=== PATIENT | male | born 1930 | race Caucasian/White ===

== ENCOUNTER 2017-10-13 09:23 | Inpatient (IN) | payer MEDICARE ==
[~2017-10-13] VITALS: Ht 182.9 cm; Wt 113.4 kg
[~2017-10-13 09:23] MED LIST: AC500T PO; ALLP100T PO; AMLO5TAB2 PO; ASP81TEC PO; ATOR80TA PO; DOXE1CAP PO; ENAL5TAB PO; FENO48TA PO; FURO20TA4 PO; FURO40TA4 PO; GLIP10TA13 PO; GLIP5TAB13 PO; LEVO750T6 PO; MTP50T PO; RANI75TA30 PO
--- OUTSIDE RECORDS SUMMARY | 2017-10-13 09:29 | XMS REPORT | Continuity of Care Document ---
Author Author [facility] Organization [facility] Address Unknown Phone Unavailable Allergies Active Description Code Type Severity Reaction Onset Reported/Identified Relationship to Patient Clinical Status Yes No Known Drug Allergies [id number] Drug Allergy Unknown N/A 05/15/2010 Medications There is no data. 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 Results There is no data. Encounters ACCT No. Visit Date/Time Discharge Status Pt. Type Provider Facility Loc./Unit Complaint [id number] 10/26/2013 13:14:00 01/24/2014 00:01:00 DIS Outpatient [id number] 09/28/2013 12:59:00 10/04/2013 00:01:00 DIS Outpatient [id number] 04/09/2013 12:53:00 06/29/2013 00:01:00 DIS Outpatient HENRIK VELAZQUEZ MD [facility] IRON DEFIECENCY ANEMIA [id number] 06/21/2013 12:54:00 06/28/2013 00:01:00 DIS Outpatient [id number] 03/16/2013 12:58:00 03/22/2013 00:01:00 DIS Outpatient [id number] 06/08/2013 13:28:58 ACT Document Registration
[2017-10-13 09:40] LABS: BASOPHILS # (AUTO) 0.1 10^3/uL (0.0-0.1); BASOPHILS % (AUTO) 1 % (0-10); EOSINOPHILS # (AUTO) 0.1 10^3/uL (0.0-0.3); EOSINOPHILS % (AUTO) 1 % (0-10); HEMATOCRIT 35 % (40-54); HEMOGLOBIN 11.5 G/DL (13.3-17.7); LYMPHOCYTES # (AUTO) 2.7 X 10^3 (1.0-4.0); LYMPHOCYTES % (AUTO) 29 % (12-44); MEAN CORPUSCULAR HEMOGLOBIN 31 PG (25-34); MEAN CORPUSCULAR HGB CONC 33 G/DL (32-36); MEAN CORPUSCULAR VOLUME 96 FL (80-99); MEAN PLATELET VOLUME 9.8 FL (7.4-10.4); MONOCYTES # (AUTO) 0.7 X 10^3 (0.0-1.0); MONOCYTES % (AUTO) 7 % (0-12); NEUTROPHILS # (AUTO) 5.9 X 10^3 (1.8-7.8); NEUTROPHILS % (AUTO) 63 % (42-75); PLATELET COUNT 179 10^3/uL (130-400); RED BLOOD COUNT 3.66 10^6/uL (4.35-5.85); RED CELL DISTRIBUTION WIDTH 13.2 % (10.0-14.5); WHITE BLOOD COUNT 9.4 10^3/uL (4.3-11.0)
[2017-10-13] MEDS ORDERED: RT-ALBUTEROL/IPRATROPIUM 3 ML (DUONEB) VIAL INH ONE (09:45)
[2017-10-13 09:58] LABS: PROTHROMBIN TIME PATIENT 13.5 SEC (12.2-14.7)
--- NOTE | 2017-10-13 09:58 | Diagnostic Imaging Report ---
INDICATION: Non-activation, fell, slurred speech, and left-sided weakness. COMPARISON: I have no previous exam for comparison. FINDINGS: There is no intracranial hemorrhage. There is generalized cerebral cortical atrophy, chronic atherosclerotic vascular calcifications, chronic dural ossification, and chronic periventricular white matter small vessel disease. No focal sulcal effacement. No evidence for focal or generalized edema. No mass or mass effect. The orbits and calvarium are nonacute. There is membrane thickening and fluid nearly completely occluding the left maxillary sinus with occlusion of left-sided anterior ethmoid air cells and the left frontal sinus. There is no mastoid effusion. The right paranasal sinuses and sphenoids are clear. IMPRESSION: Chronic senescent changes in the brain. No hemorrhage, edema, or acute-appearing intracerebral pathology. Extensive left-sided paranasal sinus disease. Dictated by: Dictated on workstation # [id number]
--- NOTE | 2017-10-13 10:06 | Diagnostic Imaging Report ---
INDICATION: Left-sided weakness and slurred speech. TIME OF EXAMINATION: 09:50 a.m. COMPARISON: Correlation is made with prior study from 07/16/2011. FINDINGS: The heart size is normal. The pulmonary vascularity is unremarkable. The lungs are clear. No infiltrate, effusion or pneumothorax is detected. IMPRESSION: No acute cardiopulmonary process is detected. Dictated by: Dictated on workstation # [id number]
[2017-10-13 10:07] LABS: ALANINE AMINOTRANSFERASE 10 U/L (0-55); ALBUMIN 3.8 GM/DL (3.2-4.5); ALKALINE PHOSPHATASE 58 U/L (40-136); BILIRUBIN,TOTAL 0.6 MG/DL (0.1-1.0); BUN/CREATININE RATIO 17; CALCIUM 9.3 MG/DL (8.5-10.1); CARBON DIOXIDE 25 MMOL/L (21-32); CHLORIDE 105 MMOL/L (98-107); CREATININE SERUM 2.25 MG/DL (0.60-1.30); GFR ESTIMATED 28; GLUCOSE 196 MG/DL (70-105); POTASSIUM 3.9 MMOL/L (3.6-5.0); SODIUM 140 MMOL/L (135-145); TOTAL PROTEIN 6.3 GM/DL (6.4-8.2)
--- NOTE | 2017-10-13 11:49 | ED Neurological Problem ---
General Chief Complaint: Neuro-Stroke Like Symptoms Stated Complaint: FALL,STROKE SYMPTOMS Nursing Triage Note: ASSISTED PT OUT OF CAR INTO A WHEELCHAIR AND INTO ROOM 07. PT AND STATE HE STARTED HAVING STROKE LIKE SYMPTOMS YESTERDAY AFTERNOON THAT PROGRESSED INTO [place]. STATES HE WAS HAVING TROUBLE TALKING AND WEAKNESS ON THE LEFT SIDE. STATES HE CONTINUES WITH THIS TROUBLE TODAY. STATES HE FELL IN THE MIDDLE OF THE NIGHT WHILE GOING TO THE BATHROOM AND FELL THIS AM ON THE WAY OUT TO THE CAR. Nursing Sepsis Screen: No Definite Risk Source: patient Exam Limitations: no limitations History of Present Illness Date Seen by Provider: Oct 13, 2017 Time Seen by Provider: 09:30 Initial Comments This 87-year-old gentleman presents to the emergency room via private vehicle after developing left-sided weakness, left facial droop and difficulty speaking sometime yesterday afternoon before supper. He had a fall off of his bed and a fall on the porch. He denies any injury to the head or neck. He has minor abrasions to the upper extremities but otherwise is uninjured. He continues to have difficulty speaking, swallowing, and weakness to the left extremities. He states he was able to ambulate this morning but only with a walker. He has some cough and some wheezing as well. He is also nauseated. Allergies and Home Medications Allergies Coded Allergies: No Known Drug Allergies (Unverified , 05/15/10) Home Medications Acetaminophen 500 Mg Tablet, 2 TAB PO Q8H PRN, (Reported) Allopurinol 100 Mg Tab, 100 MG PO BIDPC, (Reported) Atorvastatin Calcium 80 Mg Tablet, 1 EACH PO DAILY, (Reported) Doxercalciferol 1 Mcg Capsule, 2.5 MCG PO 3 times weekly, (Reported) Fenofibrate 48 Mg Tab, 1 EACH PO DAILY, (Reported) Furosemide 20 Mg Tablet, 1 EACH PO BID, (Reported) Glipizide 5 Mg Tablet, 1 EACH PO BID, (Reported) Levofloxacin 750 Mg Tablet, 1 EACH PO DAILY, (Reported) Metoprolol Tartrate 50 Mg Tablet, 1 EACH PO BID, (Reported) Ranitidine Hcl 75 Mg Tablet, 2 TAB PO DAILY, (Reported) Patient Home Medication List Home Medication List Reviewed: Yes Review of Systems Constitutional: no symptoms reported Eyes: No Symptoms Reported Ears, Nose, Mouth, Throat: no symptoms reported Respiratory: see HPI Cardiovascular: no symptoms reported Gastrointestinal: see HPI Genitourinary: no symptoms reported Musculoskeletal: no symptoms reported Skin: see HPI Psychiatric/Neurological: See HPI Endocrine: No Symptoms Reported Hematologic/Lymphatic: No Symptoms Reported Past Vasnody-Dzwbkw-Odlmek Hx Patient Social History Alcohol Use: Denies Use Recreational Drug Use: No Smoking Status: Former Smoker Recent Foreign Travel: No Contact w/Someone Who Travel: No Recent Infectious Disease Expo: No Recent Hopitalizations: No Immunizations Up To Date Tetanus Booster (TDap): Unknown Past Medical History Surgeries: Yes (ulcer surgery , MAXOID) Respiratory: No Cardiac: Yes Heart Attack, Hypertension Neurological: No Reproductive Disorders: No Gastrointestinal: No Musculoskeletal: No Endocrine: Yes Diabetes, Non-Insulin dep HEENT: No Cancer: No Psychosocial: No Blood Disorders: No Physical Exam Vital Signs Vital Signs - First Documented 10/13/17 09:23 Temp 96.7 Pulse 74 Resp 18 B/P (MAP) 177/89 (118) Pulse Ox 96 O2 Delivery Room Air Capillary Refill : Less Than 3 Seconds General Appearance: WD/WN, no apparent distress HEENT: PERRL/EOMI, other (left-sided facial droop) Neck: non-tender, normal inspection Respiratory: lungs clear, normal breath sounds, no respiratory distress, no accessory muscle use Cardiovascular: regular rate, rhythm, no murmur Gastrointestinal: normal bowel sounds, non tender, soft Extremities: non-tender, normal capillary refill, swelling (mild lower extremity edema) Neurologic/Psychiatric: alert, normal mood/affect, oriented x 3, abnormal escapement matcher II-XII (left-sided facial droop), facial droop, motor weakness (left upper and lower extremity), other (dysphasia. Patient states some blurry vision in the upper field of vision of the left eye. However, distinction of moving objects in the peripheral vision seems to be full in both eyes on exam.) Crainal Nerves: normal hearing, normal speech, PERRL Coordination/Gait: normal finger to nose, abnormal gait Motor/Sensory: weak motor strength LUE, weak motor strength LLE Skin: normal color, warm/dry, other (abrasions on the upper extremities) Stroke NIH Stroke Scale Assessment Level of Consciousness: 0=Alert (0), Level of Consciousness-Questions: 0= Answers both month/age (0), LOC Commands: 0=Performs both tasks (0), Visual [place]: 1=Partial hemianopia (1), Facial Movement (Facial Paresis): 1=Minor paralysis (1), Motor Function-Arms Right: 0=No drift (0), Motor Function-Arms Left: 1=Drift (1), Motor Function-Legs Right: 0=No drift (0), Motor Function- Legs Left: 1=Drift (1), Limb Ataxia: 0=Absent (0), Sensory: 0=Normal:no loss (0) , Best Language: 0=No aphasia (0), Dysarthria: 0=Normal (0), Extinction & Inattention: 0=No abnormality (0), Total: 4 Progress/Results/Core Measures Lab Results Laboratory Tests Test 10/13/17 09:30 Range/Units White Blood Count 9.4 4.3-11.0 10^3/uL Red Blood Count 3.66 L 4.35-5.85 10^6/uL Hemoglobin 11.5 L 13.3-17.7 G/DL Hematocrit 35 L 40-54 % Mean Corpuscular Volume 96 80-99 FL Mean Corpuscular Hemoglobin 31 25-34 PG Mean Corpuscular Hemoglobin Concent 33 32-36 G/DL Red Cell Distribution Width 13.2 10.0-14.5 % Platelet Count 179 130-400 10^3/uL Mean Platelet Volume 9.8 7.4-10.4 FL Neutrophils (%) (Auto) 63 42-75 % Lymphocytes (%) (Auto) 29 12-44 % Monocytes (%) (Auto) 7 0-12 % Eosinophils (%) (Auto) 1 0-10 % Basophils (%) (Auto) 1 0-10 % Neutrophils # (Auto) 5.9 1.8-7.8 X 10^3 Lymphocytes # (Auto) 2.7 1.0-4.0 X 10^3 Monocytes # (Auto) 0.7 0.0-1.0 X 10^3 Eosinophils # (Auto) 0.1 0.0-0.3 10^3/uL Basophils # (Auto) 0.1 0.0-0.1 10^3/uL Prothrombin Time 13.5 12.2-14.7 SEC INR Comment 1.0 0.8-1.4 Activated Partial Thromboplast Time 25 24-35 SEC Sodium Level 140 135-145 MMOL/L Potassium Level 3.9 3.6-5.0 MMOL/L Chloride Level 105 98-107 MMOL/L Carbon Dioxide Level 25 21-32 MMOL/L Anion Gap 10 5-14 MMOL/L Blood Urea Nitrogen 38 H 7-18 MG/DL Creatinine 2.25 H 0.60-1.30 MG/DL Estimat Glomerular Filtration Rate 28 BUN/Creatinine Ratio 17 Glucose Level 196 H 70-105 MG/DL Calcium Level 9.3 8.5-10.1 MG/DL Magnesium Level 2.0 1.8-2.4 MG/DL Total Bilirubin 0.6 0.1-1.0 MG/DL Aspartate Amino Transf (AST/SGOT) 13 5-34 U/L Alanine Aminotransferase (ALT/SGPT) 10 0-55 U/L Alkaline Phosphatase 58 40-136 U/L Troponin I < 0.30 <0.30 NG/ML C-Reactive Protein High Sensitivity 0.21 0.00-0.50 MG/DL B-Type Natriuretic Peptide 607.7 H <100.0 PG/ML Total Protein 6.3 L 6.4-8.2 GM/DL Albumin 3.8 3.2-4.5 GM/DL My Orders Orders - YOGESH GREWAL MD BNP (10/13/17:33) Cbc With Automated Diff (10/13/17:) Comprehensive Metabolic Panel (10/13/17:33) Hs C Reactive Protein (10/13/17:33) Magnesium (10/13/17:) Protime With Inr (10/13/17:) Partial Thromboplastin Time (10/13/17:33) Troponin I (10/13/17:33) Ua Culture If Indicated (10/13/17:33) Saline Lock/Iv-Start (10/13/17:33) Ekg Tracing (10/13/17:33) Monitor-Rhythm Ecg Trace Only (10/13/17:33) Chest 1 View, Ap/Pa Only (10/13/17:33) Albuterol/Ipra Inhalation Soln (Duoneb I (10/13/17 09:45) Svn Sm Volume Nebulizer Rt-Rfs (10/13/17:33) Ct Head Wo-R/O Stroke (10/13/17 09:33) Medications Given in ED Current Medications Medications Dose Ordered Sig/Willis Route Start Time Stop Time Status Last Admin Dose Admin Albuterol/ Ipratropium 3 ml ONCE ONCE INH 10/13/17 09:45 10/13/17 09:46 DC 10/13/17 10:39 3 ML Vital Signs/I&O 10/13/17 10/13/17 09:23 10:39 Temp 96.7 Pulse 74 Resp 18 B/P (MAP) 177/89 (118) Pulse Ox 96 96 O2 Delivery Room Air Room Air Blood Pressure Mean: 118 Progress Note : Progress Note Stroke activation was not paged as patient was more than 12 hours into his period of symptoms. He also describes some generalized weakness for a few weeks prior to when the left-sided weakness was noted. The exact time of onset is not certain. He was not a TPA candidate. CT showed no acute abnormalities. Case was reviewed with Dr. Hinds who requested consultation with the neurologist. I discussed the case with Dr. Sage who agreed the patient was not a TPA or interventional candidate due to low NIH score and prolonged time from onset. Patient demonstrated disequilibrium with his gait. He required assistance for safe gait. Patient also describes some blurry vision in the upper field of the left eye which may be related to sagging eyelid and inability to blink. He seemed to have full peripheral field distinction on exam of both eyes. UA was pending at the time of admission. Patient seemed to have no significant injuries but did have abrasions on his extremities. A Boostrix tetanus booster was ordered. Patient failed his dysphagia screen. He will need to be cleared by speech pathology before he is allowed to eat or drink. Patient was wheezing and coughing on arrival and received a DuoNeb treatment. Initial ECG Impression Date: Oct 13, 2017 Initial ECG Impression Time: 09:56 Initial ECG Rate: 64 Initial ECG Rhythm: Normal Sinus Comment Normal sinus rhythm with PVCs. Borderline prolonged QT interval. No axis deviation. No ST elevation or depression. Diagonstic Imaging: Xray Plain Films/CT/US/NM/MRI: chest Comments Chest x-ray viewed by me and report reviewed. See report below: NAME: CLAUDIO NOLASCO [facility] REC#: [id number] PT STATUS: REG ER : 1930 PHYSICIAN: YOGESH GREWAL MD ADMIT DATE: 10/13/17/ER Draft Date of Exam:10/13/17 CHEST 1 VIEW, AP/PA ONLY INDICATION: Left-sided weakness and slurred speech. TIME OF EXAMINATION: 09:50 a.m. COMPARISON: Correlation is made with prior study from 07/16/2011. FINDINGS: The heart size is normal. The pulmonary vascularity is unremarkable. The lungs are clear. No infiltrate, effusion or pneumothorax is detected. IMPRESSION: No acute cardiopulmonary process is detected. Dictated on workstation # [id number] Dict: 10/13/17 1001 Trans: 10/13/17 1005 [facility] [id number] Interpreted by: ILAN RICCI MD Diagonstic Imaging: CT Plain Films/CT/US/NM/MRI: head Comments CT head viewed by me and report reviewed. See report below: NAME: CLAUDIO NOLASCO [facility] REC#: [id number] PT STATUS: REG ER : 1930 PHYSICIAN: YOGESH GREWAL MD ADMIT DATE: 10/13/17/ER Signed Date of Exam: 10/13/17 CT HEAD WO-R/O STROKE INDICATION: Non-activation, fell, slurred speech, and left-sided weakness. COMPARISON: I have no previous exam for comparison. FINDINGS: There is no intracranial hemorrhage. There is generalized cerebral cortical atrophy, chronic atherosclerotic vascular calcifications, chronic dural ossification, and chronic periventricular white matter small vessel disease. No focal sulcal effacement. No evidence for focal or generalized edema. No mass or mass effect. The orbits and calvarium are nonacute. There is membrane thickening and fluid nearly completely occluding the left maxillary sinus with occlusion of left-sided anterior ethmoid air cells and the left frontal sinus. There is no mastoid effusion. The right paranasal sinuses and sphenoids are clear. IMPRESSION: Chronic senescent changes in the brain. No hemorrhage, edema, or acute-appearing intracerebral pathology. Extensive left-sided paranasal sinus disease. Dictated by: Dictated on workstation # [id number] Dict: 10/13/17 0953 Trans: 10/13/17 1158 Interpreted by: SADIQ COVARRUBIAS Electronically signed by: SADIQ COVARRUBIAS 10/13/17 1158 Departure Communication (Admissions) Time/Spoke to Admitting Phy: 11:30 Dr. Hinds Impression Primary Impression: Left-sided weakness Additional Impressions: Weakness on left side of face Dysphagia Qualified Codes: R13.10 - Dysphagia, unspecified Wheezing Disposition: ADMITTED INPATIENT Condition: Stable Admissions Decision to Admit Reason: Admit from ER (General) Decision to Admit/Date: Oct 13, 2017 Time/Decision to Admit Time: 09:40 Departure-Patient Inst. Referrals: ASHLEY SEXTON MD (PCP/Family) Primary Care Physician YOGESH GREWAL MD Oct 13, 2017 11:49
--- OUTSIDE RECORDS SUMMARY | 2017-10-13 12:07 | XMS REPORT | Continuity of Care Document ---
Author Author [facility] Organization [facility] Address Unknown Phone Unavailable Allergies Active Description Code Type Severity Reaction Onset Reported/Identified Relationship to Patient Clinical Status Yes No Known Drug Allergies [id number] Drug Allergy Unknown N/A 05/15/2010 Medications There is no data. 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 Results There is no data. Encounters ACCT No. Visit Date/Time Discharge Status Pt. Type Provider Facility Loc./Unit Complaint [id number] 10/26/2013 13:14:00 01/24/2014 00:01:00 DIS Outpatient [id number] 09/28/2013 12:59:00 10/04/2013 00:01:00 DIS Outpatient [id number] 04/09/2013 12:53:00 06/29/2013 00:01:00 DIS Outpatient HENRIK VELAZQUEZ MD [facility] IRON DEFIECENCY ANEMIA [id number] 06/21/2013 12:54:00 06/28/2013 00:01:00 DIS Outpatient [id number] 03/16/2013 12:58:00 03/22/2013 00:01:00 DIS Outpatient [id number] 06/08/2013 13:28:58 ACT Document Registration
[2017-10-13] MEDS ORDERED: TETANUS,DIPTH,PERTUSS P/F (BOOSTRIX) 0.5 ML VIAL IM ONE (12:30)
[2017-10-13] MEDS ORDERED: ACETAMINOPHEN 650 MG SUPP (TYLENOL) PR PRN (12:45)
[2017-10-13] MEDS ORDERED: NS IV 1000 ML 1,000 ML IV SCH (12:45)
[2017-10-13] MEDS ORDERED: CATHETER FLUSH 10 ML SYR IV PRN (12:45)
[2017-10-13] MEDS ORDERED: ONDANSETRON 4 MG/2 ML (SDV) Z0FRAN IV PRN (12:45)
[2017-10-13] MEDS ORDERED: ACETAMINOPHEN 325 MG TABLET PO PRN (12:45)
[2017-10-13] MEDS ORDERED: ASPIRIN E.C. 325 MG (ECOTRIN) TABLET PO SCH (12:45)
[2017-10-13] MEDS ORDERED: BISACODYL 10 MG SUPP (DULCOLAX) PR PRN (12:45)
[2017-10-13] MEDS ORDERED: GLIP10TA13 PO (13:23)
[2017-10-13] MEDS ORDERED: FURO40TA4 PO (13:23)
[2017-10-13] MEDS ORDERED: FENO48TA5 PO (13:23)
[2017-10-13] MEDS ORDERED: AMLO5TAB2 PO (13:23)
[2017-10-13] MEDS ORDERED: METO50TA15 PO (13:23)
[2017-10-13] MEDS ORDERED: ATOR40TA70 PO (13:23)
[2017-10-13] MEDS ORDERED: POTA10CA43 PO (13:23)
--- NOTE | 2017-10-13 13:32 | Physical Therapy Evaluation ---
PT Evaluation-General Medical Diagnosis Admission Date Oct 13, 2017 at 11:40 Medical Diagnosis: left sided weakness Onset Date: Oct 12, 2017 Therapy Diagnosis Therapy Diagnosis: generalized weakness/debility Height/Weight Height (Feet): 6 Height (Inches): 0.00 Weight (Pounds): 250 Weight (Ounces): 0.0 Precautions Precautions/Isolations: Fall Prevention, Standard Precautions Weight Bear Status Right Lower Extremity: Right Full Weight Bearing Left Lower Extremity: Left Full Weight Bearing Referral Physician: Lizet Reason for Referral: Evaluation/Treatment Medical History Pertinent Medical History: HTN, PA Current History ED via private vehicle with stroke like symptoms and 2 falls/difficulty swallowing, speaking and left sided weakness. Reviewed History: Yes Social History Home: Single Level Current Living Status: Spouse Entry Into Home: Stairs With Railing PT Steps Into Home: 4 Prior/Core FIM Prior Level of Function Functional [place] Measure 0=Not Assessed/NA 4=Minimal Assistance 1=Total Assistance 5=Supervision or Setup 2=Maximal Assistance 6=Modified [place] 3=Moderate Assistance 7=Complete [place] Bed Mobility: 6 Transfers (B,C,W/C) (FIM): 6 Gait: 6 Locomotion: 6 patient reports he utilizes FWW occasionally PT Evaluation-Current Subjective Patient agrees to PT. Pain Numeric Pain Scale: 0-No Pain Location: No Pain Reported Objective Patient Orientation: Normal For Age Problem Solving: Good ROM/Strength ROM Lower Extremities bilateral LE WNL Strength Lower Extremities right knee flexion/extension 4+/5; hip flexion 4+/5; DF/PF 4+/5 left knee flexion/extension 3/5; hip flexion 3/5; DF/PF 3/5 Integumentary/Posture Integumentary multiple abrasions due to falls at home Bowel Incontinence: No Bladder Incontinence: No Posture slight trunk flexed posture Neuromuscular (Tone, Coordination, Reflexes) slightly diminished coordination with left LE with diminished proprioception Sensory Vision: Functional Hearing: Impaired Sensation Right Lower Extremit: Intact Sensation Left Lower Extremity: Intact Transfers Functional [place] Measure 0=Not Assessed/NA 4=Minimal Assistance 1=Total Assistance 5=Supervision or Setup 2=Maximal Assistance 6=Modified [place] 3=Moderate Assistance 7=Complete [place] Transfers (B, C, W/C) (FIM): 4 Scootin Rollin Supine to/from Sit: 5 Sit to/from Stand: 4 Gait Mode of Locomotion: Walk Anticipated Mode of Locomotion: Walk Gait (FIM): 2 Distance (FIM): 0=547-18 ft Distance: 100' Gait Level of Assist: 4 Gait Persons Needed: 1 Gait Assistive Device: FWW Comments/Gait Description extended UE's with FWW/noted left LE weakness and gait training with slight left LE lag Balance Sitting Static: Normal Sitting Dynamic: Normal Standing Static: Fair Standing Dynamic: Fair Assessment/Needs 87 y.o. male, will benefit from skilled PT to address functional strength and mobility to improve current LOF and to safely return to home with spouse at maximum LOF. 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 Medical Office Professional Instructor Goals PT Half-Way Goals Time Frame: Oct 24, 2017 Transfers (B,C,W/C) (FIM): 6 Gait (FIM): 6 Gait distance (FIM): 3=150 ft Distance: 225' Gait Level of Assist: 6 Gait Assistive Device: None, FWW, Cane Single Point Stairs (FIM): 5 # of Steps: 8 Stairs Level Of Assist: 5 PT Plan Problem List Problem List: Activity Tolerance, Functional Strength, Safety, Balance, Gait Treatment/Plan Treatment Plan: Continue Plan of Care Treatment Plan: Bed Mobility, Education, Functional Activity Yong, Functional Strength, Gait, Safety, Therapeutic Exercise, Transfers Treatment Duration: Oct 24, 2017 Frequency: 11 times per week Estimated Hrs Per Day: .5 hour per day Patient and/or Family Agrees t: Yes Safety Risks/Education Patient Education: Safety Issues Teaching Recipient: Patient Teaching Methods: Discussion Response to Teaching: Verbalize Understanding Discharge Recommendations Therapy D/C Recommendations: Acute Rehab, Physical Therapy Home Care Time/GCodes Time In: 1300 Time Out: 1315 Total Billed Treatment Time: 15 [facility] Oct 13, 2017 13:31
--- NOTE | 2017-10-13 13:46 | ST Dysphagia Evaluation ---
Speech Evaluation-General Medical Diagnosis left sided weakness Onset Date: Oct 12, 2017 Therapy Diagnosis Therapy Diagnosis: Mild to Moderate Pharyngeal Dysphagia Precautions Precautions: Aspiration Precautions/Isolations: Fall Prevention, Standard Precautions Referral Referring Physician: Dr. Jessie Hinds Reason for Referral: Evaluation/Treatment Clinical Bedside Swallowing Evaluation Medical History Pertinent Medical History: HTN, [place] Current History The patient was recently admitted to [facility] following stroke-like symptoms including left sided weakness. Reviewed History: Yes Social History Current Living Status: Spouse Speech PLF/Current-Dysphagia Prior Level of Function The patient's stated the patient has been "coughing a lot" on liquids for "some time now." The patient's denied additional information regarding the patient's swallowing function, however, did report the patient consumes a regular diet with thin liquids at home. Subjective The patient was seated upright in recliner upon entrance. The patient greeted the clinician and was agreeable to participation in the clinical bedside swallowing evaluation. CXR: 10/13/2017: No acute cardiopulmonary process. Cognitive Status Patient Orientation: Person, Place Oral Motor Skills Dentition: Natural Ability to Follow Directions: Good The patient is NPO pending the results of the swallowing evaluation. Oral Expression Ability: Mild Impairment Voice Voice Phonatory-Based Quality: Glottal [place] Voice Pitch: Normal Voice Loudness: Normal Face Facial Symmetry: Asymmetrical (Left facial droop noted (lower 2/3; able to elevate bilateral eyebrows).) Oral-Facial Assessment Oral-Facial Dentition: Normal Labial Seal Description: Droops Left Smile: Droops Left Puff Cheeks: Reduced Strength (Left.) Lingual Protrusion: Abnormal (Slight left sided deviation.) Lingual ROM: Normal Lingual Strength: Abnormal (Slightly reduced left sided strength.) Pharynx Velopharyngeal Move.: Normal Volitional Dry Swallow: Yes Dysphagia Evaluation Consistencies Presented: Regular, Thin Liquid, [place] Thick Liquid, Honey Thick Liquid, Pureed - No oral deficits were noted throughout the evaluation. Pharyngeal Phase: Reduced Laryngeal Elevation, Delayed Swallow - Poor airway protection in the presence of bolus material was appreciated as demonstrated through the patient's delayed cough response to thin liquids. Funct. Velo/Pharyngeal Symptom: Clears Throat, Cough After Swallow, Wet Voice - Thin Liquid (via teaspoon, cup sip): The patient demonstrated a delayed throat clear following one of six teaspoon trials. The patient displayed an immediate cough following two of two cup sip trials. - [place]-thick liquid (via teaspoon and straw): The patient did not demonstrate any signs/symptoms of aspiration with teaspoons of nectar-thick liquid. A delayed throat clear was noted following two of two straw sips of nectar-thick liquid. - Honey-thick liquid (via teaspoon and straw): No signs/symptoms of aspiration were demonstrated with multiple boluses of honey-thick liquid via teaspoon or consecutive straw drink. - Puree: No signs/symptoms of aspiration were demonstrated with puree consistencies tested. - Solid: No signs/symptoms of aspiration were demonstrated with solid consistencies tested. - Puree with Medication: No signs/symptoms of aspiration were demonstrated with a pill placed in a puree consistency for administration. To note: Due to the patient's intentional tremor, a straw was found to be a more beneficial method of administration versus cup. Dietary Recommendations: Regular Liquid Recommendations: Honey Consistancy Swallowing Precautions: Small Bites and Sips, Sitting 90 Degrees 30 Post Intake Medication placed in puree for administration. Dysphagia Evaluation Summary The patient demonstrated mild to moderate pharyngeal dysphagia characterized by a delayed pharyngeal swallow response and reduced laryngeal elevation. Speech Short Term Goals Short Term Goals Short Term Goals 1. The patient will tolerate 10/10 trials of nectar-thick liquid via teaspoon and straw sip. 2. The patient will demonstrate swallowing strategies with 75% accuracy and mild clinician verbal cueing. Time Frame-STG: Five Days Speech Handkerchief Sample Clerk Goals Nursing Home Goals 1. The patient will tolerate the LRD without signs/symptoms of aspiration or laryngeal penetration. Time Frame: Ten Days Speech-Plan Treatment Plan Speech Therapy Treatment Plan: Continue Plan of Care Continue skilled speech pathology to target swallowing safety. Treatment Duration: Oct 24, 2017 Frequency: 3 times per week Estimated Hrs Per Day: .25 hour per day Rehab Potential: Fair Safety Risks/Education Teaching Recipient: Patient, Significant Other Teaching Methods: Discussion Response to Teaching: Verbalize Understanding Education Topics Provided: Results, Recommendations, Plan of Care - The above recommendations were shared with the patient intensive care anaesthetist who agreed to provide the recommendations to the RN. Time Speech Therapy Time In: 13:20 Speech Therapy Time Out: 13:35 Total Billed Time: 15 Billed Treatment Time 1 COLLIN ORTIZ Oct 13, 2017 13:46
--- NOTE | 2017-10-13 14:20 | Occupational Therapy Eval ---
OT Evaluation-General/PLF Medical Diagnosis Admission Date Oct 13, 2017 at 11:40 Medical Diagnosis: left sided weakness Onset Date: Oct 12, 2017 Therapy Diagnosis Therapy Diagnosis: decreased ADL skills Height/Weight Height (Feet): 6 Height (Inches): 0.00 Weight (Pounds): 250 Weight (Ounces): 0.0 Precautions Precautions/Isolations: Fall Prevention, Standard Precautions Referral Physician: Lizet Medical History Pertinent Medical History: DM, HTN, [place] Current History Pt presented to hospital with reports of left side weakness and difficulty speaking and swallowing Social History Home: Single Level Current Living Status: Spouse Entry Into Home: Stairs With Railing Steps Into Home: 4 ADL-Prior Level of Function ADL PLOF Comments Pt reports being independent prior to onset of symptoms. DME/Equipment: Bath Chair, Tub/Shower Drive Self: Yes OT Current Status Subjective Pt sitting in chair, agrees to therapy. No c/o pain. Mental Status/Objective Patient Orientation: Person, Place, Situation Current Glasses/Contacts: Yes Hearing Aids: No Dentures/Partials: No Hand Dominance: Right Upper Extremity ROM Grossly WFL Upper Extremity Strength Right UE grossly 4+/5 Left UE grossly 4/5 ADL-Treatment ADL-Current Pt participated in UE assessment while seated. Pt doffed/donned sock with SBA and increased time. Sit to stand with supervision. Pt demonstrated ability to perform transfer with minimal assistance and cues for safety using FWW. Education provided regarding role of OT and plan of care. Pt states understanding and is in agreement. Pt sitting in chair with needs met and spouse and nurse aide present after session. Functional [place] Measure 0=Not Assessed/NA 4=Minimal Assistance 1=Total Assistance 5=Supervision or Setup 2=Maximal Assistance 6=Modified [place] 3=Moderate Assistance 7=Complete IndependenceIRFPAI Quality Coding Scale 6 Independent with activity with or without an assistive device 5 Patient requires set up or clean up by helper. Patient completes activity by themselves 4 Supervision or touching assist (CGA). [place] provide cues , steadying assist 3 The helper provides less than half the effort to complete the activity 2 The helper provides more than half the effort to complete the activity 1 Dependent. The helper does all the effort to complete an activity 7 Patient refused to complete or attempt activity 9 The patient did not perform the activity before the current illness or injury 88 Not attempted due to Medical conditions or safety concerns Education OT Patient Education: Rehab process Teaching Recipient: Patient Teaching Methods: Discussion Response to Teaching: Verbalize Understanding OT Short Term Goals Short Term Goals 1=Demonstrate adherence to instructed precautions during ADL tasks. 2=Patient will verbalize/demonstrate understanding of assistive devices/ modifications for ADL. 3=Patient will improve strength/tolerance for activity to enable patient to perform ADL's. OT Care Home Goals Digital Marketing Specialist Goals Time Frame: Oct 24, 2017 Eating (FIM): 6 Grooming(FIM): 6 Bathing(FIM): 5 Upper Body Dressing(FIM): 6 Lower Body Dressing(FIM): 6 Toileting(FIM): 6 Toilet/Commode Transfer(FIM): 6 Additional Goals: 2-Verbalize Understanding, 3-ImproveStrength/Yong 1=Demonstrate adherence to instructed precautions during ADL tasks. 2=Patient will verbalize/demonstrate understanding of assistive devices/ modifications for ADL. 3=Patient will improve strength/tolerance for activity to enable patient to perform ADL's. OT Education/Plan Problem List/Assessment Assessment: Decreased Activ Tolerance, Decreased UE Strength, Dependent Transfers, Impaired Self-Care Skills Pt to benefit from skilled OT intervention for ADL training, transfers, strengthening, and home safety education to increase level of independence and allow safe discharge plan. Discharge Recommendations Plan/Recommendations: Continue POC Treatment Plan/Plan of Care Treatment,Training & Education: Yes Patient would benefit from OT for education, treatment and training to promote independence in ADL's, mobility, safety and/or upper extremity function for ADL' s. Plan of Care: ADL Retraining, Functional Mobility, UE Funct Exercise/Act, UE Neuromus Re-Ed/Coord Treatment Duration: Oct 24, 2017 Frequency: 5 times per week Estimated Hrs Per Day: .25 hour per day Agreement: Yes Rehab Potential: Fair Time/GCodes Start Time: 13:50 Stop Time: 14:07 Total Time Billed (hr/min): 17 Billed Treatment Time 1 visit, PRACHI(17minutes) ROLF LINK OT Oct 13, 2017 14:20
[2017-10-13] MEDS ORDERED: FEBU80TA PO (14:26)
[2017-10-13] MEDS ORDERED: ACET-2469 PO (14:26)
[2017-10-13] MEDS ORDERED: ASPI-983 PO (14:26)
[2017-10-13] MEDS ORDERED: ACET-2267 PO (14:26)
[2017-10-13] MEDS ORDERED: RANI-425 PO (14:26)
[2017-10-13] MEDS ORDERED: CHOL20002 PO (14:31)
[2017-10-13] MEDS ORDERED: ASCO-262 PO (14:31)
[2017-10-13] MEDS ORDERED: FERR-84 PO (14:31)
--- NOTE | 2017-10-13 15:51 | Diagnostic Imaging Report ---
PROCEDURE: US carotid duplex, bilateral. TECHNIQUE: Multiple real-time grayscale images were obtained over the carotid arteries in various projections, bilaterally. Additional duplex Doppler and color Doppler images were also obtained. INDICATION: Left-sided weakness. FINDINGS: Minimal plaquing in the distal left common carotid artery is noted. The velocities are unremarkable bilaterally. No high-grade stenosis is seen. There is tortuosity to the internal carotid arteries. The left vertebral artery shows antegrade flow. The right vertebral artery was not visualized. Parameters based on the consensus panel Rmairez-Scale and Doppler ultrasound criteria published April 2003, Radiology, Volume 229. DOPPLER (peak systolic velocity M/S Right Left CCA 1.15 1.14 ICA Proximal .69 .65 ICA Mid .75 .64 ICA Distal .64 1.24 RATIO .65 1.09 ECA .71 .65 VERT NOT VISUALIZED .67 IMPRESSION: Mild carotid plaque. There is no evidence of a hemodynamically significant stenosis. Dictated by: Dictated on workstation # [id number]
[2017-10-13 16:20] VITALS: BP 168/88
--- NOTE | 2017-10-13 16:38 | Diagnostic Imaging Report ---
PROCEDURE: MR angiography of the brain without the use of contrast. TECHNIQUE: 3D zwgk-di-vardyi non contrast enhanced MR angiography of the head was performed. A source data was reformatted into rotating MIP projections. INDICATION: Slurred speech. Left-sided weakness. COMPARISON: CT head without contrast from earlier today. FINDINGS: The basilar, right intracranial, internal carotid, bilateral intracranial vertebral, anterior cerebral, middle cerebral and posterior cerebral arteries are widely patent without evidence of aneurysm. There is an apparent outpouching of the left cavernous internal carotid artery measuring approximately 5 x 3 mm located between acquisition slabs [id number]-[id number] sequence. The anterior and posterior communicating arteries are patent. The superior and anterior inferior cerebellar arteries are patent. The posterior inferior cerebellar arteries are not included within the ooqeg-rs-vtlj entirely. Advanced generalized cerebral and cerebellar parenchymal volume loss. 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 Chronic infarcts versus prominent perivascular spaces in the basal ganglia. Complete occlusion of the left maxillary, anterior ethmoid and partially visualized left maxillary sinus. IMPRESSION: 1. There is an apparent outpouching medially of the left cavernous ICA that occurs at the transition between acquisition slabs of the [id number]-ug-pfyxjg sequence. This most likely represents artifact. However, an aneurysm cannot be excluded. Recommend evaluation with CTA. 2. No evidence of intracranial high-grade arterial narrowing. 3. 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 Chronic infarcts versus prominent perivascular spaces in both basal ganglia. 4. Ostiomeatal unit pattern of left paranasal sinus obstruction. Dictated by: Dictated on workstation # [id number]
--- NOTE | 2017-10-13 16:58 | History & Physical-Hospitalist ---
History of Present Illness HPI/Chief Complaint Pt is an 87yoCM with aPMH of HTN, IDDMII, and TIA who presented to the ER with a CC of left hand and left leg weakness that started last night at 8pm. His states he has been feeling more weak for the past few days though and has fallen 3 times prompting her to bring him to the ER today for evaluation. He was activated as a code stroke and CT Head was performed and negative. [facility] stroke team were contacted as well and due to improving symptoms, long duration since onset, and risk of transfer that recommended no TPA and to manage in house. He was found to have significant imbalance in the ER with ambulation and he failed his dysphagia screen. Now he states that his symptoms are improving but still not 100% better. 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 Source: patient Date Seen 10/13/17 Time Seen by Provider: 16:15 Attending Physician Jose Hinds MD PCP Arcenio Gao MD Referring Physician Date of Admission Oct 13, 2017 at 11:40 am Home Medications & Allergies Home Medications Reviewed patient Home Medication Reconciliation performed by pharmacy medication reconciliations utility locate technician and/or nursing. Patients Allergies have been reviewed. Allergies Allergies Coded Allergies No Known Drug Allergies (Gmqnqgqstm07/16/10) Past Grmlmjn-Mqnmry-Sjssss Hx Past Med/Social Hx: Reviewed Nursing Past Med/Soc Hx, Reviewed and Corrections made Patient Social History Marrital Status: single Employed/Student: retired Alcohol Use: Denies Use Recreational Drug Use: No Smoking Status: Former Smoker Physical Abuse Screen: No Sexual Abuse: No Recent Foreign Travel: No Contact w/other who traveled: No Recent Hopitalizations: No Recent Infectious Disease Expo: No Immunizations Up To Date Tetanus Booster (TDap): Unknown Past Medical History Surgeries: Abdominal Cardiac: Heart Attack, Hypertension Reproductive: No Endocrine: Diabetes, Insulin dep History of Blood Disorders: No Family History Reviewed Nursing Family Hx No Pertinent Family Hx Review of Systems Constitutional: No chills, No fever EENTM: No blurred vision, No double vision, No nose congestion, No throat pain Respiratory: No cough, No dyspnea on exertion, No short of breath Cardiovascular: No chest pain, No edema, No palpitations Gastrointestinal: No abdominal pain, No constipation, No diarrhea, No nausea, No vomiting Genitourinary: No dysuria, No frequency Musculoskeletal: No joint pain, No muscle pain Skin: No lesions, No rash Psychiatric/Neurological: Denies Headache, Denies Numbness, Denies Tingling; Weakness All Other Systems Reviewed Negative Unless Noted: Yes (Negative excepted noted.) Physical Exam Physical Exam Vital Signs Vital Signs - First Documented 10/13/17 09:23 Temp 96.7 Pulse 74 Resp 18 B/P (MAP) 177/89 (118) Pulse Ox 96 O2 Delivery Room Air Capillary Refill : Less Than 3 Seconds General Appearance: No Apparent Distress, WD/WN HEENT: PERRL/EOMI, Moist Mucous Membranes Neck: Non Tender, Supple Respiratory: Lungs Clear, No Respiratory Distress Cardiovascular: Regular Rate, Rhythm, No Murmur Gastrointestinal: Normal Bowel Sounds, Non Tender, Soft Extremity: Normal Capillary Refill, No Calf Tenderness Neurologic/Psychiatric: Alert, Oriented x3, Normal Mood/Affect, Motor Weakness (left extremities ), Other (hard of hearing- appears to be oriented but confounded somewhat) Skin: Normal Color, Warm/Dry Results Results/Procedures Labs Laboratory Tests 10/13/17 09:30 Patient resulted labs reviewed. Imaging: Reviewed Imaging Report Assessment/Plan Admission Diagnosis left sided weakness Admission Status: Observation Diagnosis/Problems Diagnosis/Problems (1) Left-sided weakness Status: Acute Assessment & Plan: Concern for CVA Will get MRA and carotid dopplers per [facility] recommendations Lipid Panel ordered ASA ordered PT/OT/ST ordered Does not smoke Statin ordered Monitor on telemetry (2) Dysphagia Status: Acute Assessment & Plan: ST evaluated Regular diet with honey thick liquids Qualifiers: Dysphagia type: unspecified Qualified Codes: R13.10 - Dysphagia, unspecified (3) Insulin dependent diabetes mellitus Assessment & Plan: states he takes insulin but has not filled since December Will monitor off Lantus SSI ordered Continue Glipizide (4) Essential (primary) hypertension Assessment & Plan: Monitor BP Allow for permissive hypertension (5) CKD (chronic kidney disease) stage 4, GFR 15-29 ml/min Assessment & Plan: At apparent baseline Trend (6) Prophylactic measure Assessment & Plan: Lovenox Saline Lock Reg diet with thickened liquid JOSE HINDS MD Oct 13, 2017 4:58 pm
[2017-10-13] MEDS ORDERED: ENOXAPARIN 40 MG/0.4 ML (LOVENOX) SYR SC SCH (17:15)
[2017-10-13 17:20] VITALS: BP 158/90
[2017-10-13] MEDS ORDERED: KCL 10 MEQ TAB (MICRO K) PO SCH (17:30)
[2017-10-13] MEDS ORDERED: ENOXAPARIN 30 MG/0.3 ML (LOVENOX) SYR SC SCH (17:30)
[2017-10-13] MEDS: glipiZIDE 5 MG (GLUCOTROL) TAB PO SCH (18:08)
[2017-10-13 18:28] VITALS: BP 170/88
[2017-10-13 19:39] VITALS: BP 167/76
[2017-10-13] MEDS: DOCUSATE SODIUM 100 MG (COLACE) CAP PO SCH (20:04)
[2017-10-13] MEDS ORDERED: NON-FORMULARY MEDICATION 1 EA EA (Potassium Chloride 10 MEQ) PO SCH (21:00)
[2017-10-13] MEDS ORDERED: FAMOTIDINE 20 MG (PEPCID) TABLET PO SCH (21:00)
[2017-10-13] MEDS ORDERED: RANITIDINE HCL 75 MG PO SCH (21:00)
[2017-10-13] MEDS ORDERED: NON-FORMULARY MEDICATION 1 EA EA (Glipizide 10 MG) PO SCH (21:00)
[2017-10-13] MEDS: inSUlin ASPART (NovoLOG) 1 UNIT/0.01 ML (CHARGE PER UNIT) SC SCH (21:45)
[2017-10-13 22:53] LABS: BILIRUBIN,URINE NEGATIVE (NEGATIVE); CLARITY,URINE CLEAR; COLOR,URINE AMBER; GLUCOSE, URINE (UA) NEGATIVE (NEGATIVE); KETONES,URINE NEGATIVE (NEGATIVE); LEUKOCYTE ESTERASE ,URINE NEGATIVE (NEGATIVE); NITRITE,URINE NEGATIVE (NEGATIVE); PH,URINE 5 (5-9); PROTEIN,URINE 3+ (NEGATIVE); UROBILINOGEN,URINE NORMAL (NORMAL)
[2017-10-13 23:01] LABS: SQUAMOUS EPITHELIAL CELL,UR 0-2 /HPF
[2017-10-14] VITALS: BP 161/76
[2017-10-14 04:00] VITALS: BP 178/72
[2017-10-14] MEDS: inSUlin ASPART (NovoLOG) 1 UNIT/0.01 ML (CHARGE PER UNIT) SC SCH (05:11)
[2017-10-14 05:47] LABS: MEAN PLATELET VOLUME 10.3 FL (7.4-10.4); RED BLOOD COUNT 3.15 10^6/uL (4.35-5.85); RED CELL DISTRIBUTION WIDTH 12.9 % (10.0-14.5); WHITE BLOOD COUNT 5.7 10^3/uL (4.3-11.0)
[2017-10-14] MEDS: glipiZIDE 5 MG (GLUCOTROL) TAB PO SCH (06:08)
[2017-10-14 06:16] LABS: ALBUMIN 3.2 GM/DL (3.2-4.5); BILIRUBIN,TOTAL 0.6 MG/DL (0.1-1.0); CALCIUM 8.7 MG/DL (8.5-10.1); CREATININE SERUM 2.18 MG/DL (0.60-1.30); POTASSIUM 3.8 MMOL/L (3.6-5.0); TOTAL PROTEIN 5.3 GM/DL (6.4-8.2)
[2017-10-14] MEDS: DOCUSATE SODIUM 100 MG (COLACE) CAP PO SCH (07:57)
[2017-10-14 08:30] VITALS: BP 157/71
[2017-10-14] MEDS ORDERED: FUROSEMIDE 40 MG (LASIX) TAB PO SCH (09:00)
[2017-10-14] MEDS ORDERED: NON-FORMULARY MEDICATION 1 EA EA (Fenofibrate Nanocrystallized (Fenofibrate) 48 MG) PO SCH (09:00)
[2017-10-14] MEDS ORDERED: ATORVASTATIN 40 MG (LIPITOR) TABLET PO SCH (09:00)
--- NOTE | 2017-10-14 09:23 | Discharge Summary-Hospitalist ---
Diagnosis/Chief Complaint Date of Admission Oct 13, 2017 at 11:40 am Date of Discharge Discharge Date: Oct 14, 2017 Admission Diagnosis left sided weakness Discharge Diagnosis (1) Left-sided weakness Status: Acute Assessment & Plan: Concern for CVA Will get MRA and carotid dopplers per [facility] recommendations Lipid Panel ordered ASA ordered PT/OT/ST ordered Does not smoke Statin ordered Monitor on telemetry (2) Dysphagia Status: Acute Assessment & Plan: ST evaluated Regular diet with honey thick liquids (3) Insulin dependent diabetes mellitus Assessment & Plan: states he takes insulin but has not filled since December Will monitor off Lantus SSI ordered Continue Glipizide (4) Essential (primary) hypertension Assessment & Plan: Monitor BP Allow for permissive hypertension (5) CKD (chronic kidney disease) stage 4, GFR 15-29 ml/min Assessment & Plan: At apparent baseline Trend (6) Prophylactic measure Assessment & Plan: Lovenox Saline Lock Reg diet with thickened liquid Discharge Summary Discharge Physical Exam Allergies: Coded Allergies: No Known Drug Allergies (Unverified , 05/15/10) Vitals & I&Os Vital Signs Date Time Temp Pulse Resp B/P (MAP) Pulse Ox O2 Delivery O2 Flow Rate FiO2 10/14/17 08:30 97.7 80 20 157/71 (99) 93 Room Air General Appearance: Alert, Oriented X3 Respiratory: Clear to Auscultation Cardiovascular: Regular Rate Hospital Course Pt presented to the ER with CC of left sided weakness. He was activated as a stroke and [facility] stroke team was contacted. He was not a candidate for TPA given duration of symptoms. He was admitted and evaluated by PT/OT/ST and was deemed a candidate for ARU. He was discharged to ARU for intensive therapy. Labs (last 24 hrs) Patient resulted labs reviewed. Pending Labs Imaging: Reviewed Imaging Report Discussion & Recommendations Discharge Planning: >30 minutes discharge planning Discharge Home Medications: Active Scripts Active Reported Vitamin C (Ascorbate Calcium) 500 Mg Tablet 500 Mg PO DAILY Vitamin D-3 (Cholecalciferol (Vitamin D3)) 2,000 Unit Capsule 2,000 Unit PO DAILY Iron (Ferrous Sulfate) 325 Mg Tablet 325 Mg PO DAILY Tylenol Pm Ex-Strength Caplet (Acetaminophen/Diphenhydramine) 1 Each Tablet 1 Tab PO HS Tylenol Extra Strength (Acetaminophen) 500 Mg Tablet 500 Mg PO Q4H PRN Uloric (Febuxostat) 80 Mg Tablet 80 Mg PO DAILY Aspirin EC (Aspirin) 81 Mg Tablet.dr 81 Mg PO 1200 Ranitidine HCl 75 Mg Tablet 75 Mg PO HS Fenofibrate (Fenofibrate Nanocrystallized) 48 Mg Tablet 48 Mg PO DAILY Amlodipine Besylate 5 Mg Tablet 5 Mg PO DAILY Atorvastatin Calcium 40 Mg Tablet 40 Mg PO DAILY Furosemide 40 Mg Tablet 40 Mg PO DAILY Potassium Chloride 10 Meq Capsule.er 10 Meq PO HS Metoprolol Tartrate 50 Mg Tablet 50 Mg PO BID Glipizide 10 Mg Tablet 10 Mg PO TID Instructions to patient/family Please see electronic discharge instructions given to patient. Clinical Quality Measures DVT/VTE Risk/Contraindication: Risk Factor Score Per Nursin RFS Level Per Nursing on Admit: 4+=Very High Stroke: Quality Measures-Stroke Pt: Antithrombotic therapy by EOD 2, Assessed for Rehab (PT,OT,ARU,etc), D/C'd on Antithrombotic, D/C'd on statin (for LDL>=70), Lipid panel ordered, VTE Problem Qualifiers (1) Dysphagia: Dysphagia type: unspecified Qualified Codes: R13.10 - Dysphagia, unspecified JOSE LOPEZ MD Oct 14, 2017 09:22
[2017-10-14] MEDS ORDERED: ASPIRIN E.C. 81 MG (ECOTRIN) TAB PO SCH (12:00)
[2017-10-14] MEDS ORDERED: FENOFIBRATE, MICRO 67 MG (LOFIBRA) CAPSULE PO SCH (21:00)
== END 2017-10-14 10:20 | DRG 65 ==
LOC: EDUNIT# 09:23 → ER 09:25 → 4TH 11:40
PROVIDERS: ADMIT Family Medicine; ATTEND Family Medicine
DX: I63.9 Cerebral infarction, unspecified (principal); I69.354 Hemiplegia and hemiparesis following cerebral infarction affecting left non-dominant side; I69.391 Dysphagia following cerebral infarction; I69.392 Facial weakness following cerebral infarction; I12.9 Hypertensive chronic kidney disease with stage 1 through stage 4 chronic kidney disease, or unspecified chronic kidney disease; N18.4 Chronic kidney disease, stage 4 (severe); E11.22 Type 2 diabetes mellitus with diabetic chronic kidney disease; Z66 Do not resuscitate; I25.2 Old myocardial infarction; Z79.4 Long term (current) use of insulin; Z87.891 Personal history of nicotine dependence; Z79.84 Long term (current) use of oral hypoglycemic drugs
CPT/HCPCS: 36415; 70450; 70544; 71045; 80053; 80061; 81000; 82962; 83735; 83880; 84484; 85025; 85027; 85610; 85730; 86141; 90715; 93005; 93041; 93880; 94664

== ENCOUNTER 2018-01-22 15:40 | Outpatient (RCR) | payer MEDICARE ==
[~2018-01-22 15:40] MED LIST changes: +ACET-2267 PO; +ACET-2469 PO; +ASCO-262 PO; +ASPI-983 PO; +ATOR40TA70 PO; +CHOL20002 PO; +FEBU80TA PO; +FENO48TA5 PO; +FERR-84 PO; +METO50TA15 PO; +POTA10CA43 PO; +RANI-425 PO
== END 2018-01-23 09:02 | disposition home or self-care (01) ==
PROVIDERS: ATTEND Physician Assistant
DX: I69.354 Hemiplegia and hemiparesis following cerebral infarction affecting left non-dominant side (principal)

== ENCOUNTER → 2018-03-12 | Outpatient (CLI) | payer MEDICARE ==
[~2018-03-12] MED LIST changes: +AMLO5TAB7 PO
--- NOTE | 2018-03-12 15:23 | Diagnostic Imaging Report ---
CLINICAL INDICATION: Patient with chronic kidney disease stage III, proteinuria. EXAM: Ultrasound of both kidneys. COMPARISON: None. FINDINGS: There is a 6.9 cm cyst, in greatest measurable dimension involving the midportion of the right kidney. There is another larger exophytic cyst involving the inferior pole of right kidney which measures 9.8 cm in greatest dimension. There is a 2.3 cm cyst involving the midportion of the left kidney. There is thinning of the renal cortices bilaterally. Otherwise, both kidneys are normal in size, shape, and echogenicity without hydronephrosis, stones, or other focal lesions with the right and left kidneys measuring 12.2 cm and 12.5 cm in their craniocaudal dimensions, respectively. The bladder is partially fluid filled. There is a low-echogenicity lobulated structure on the base of the bladder. This may represent prostate gland. Otherwise, bladder is unremarkable. IMPRESSION: 1: Multiple bilateral renal cysts with the largest one measuring 9.8 cm involving the inferior pole of the right kidney. 2: There is thinning of the bilateral renal cortices. Otherwise, both kidneys are unremarkable with no hydronephrosis. 3: Possible exophytic protrusion of prostate gland into the base of the bladder. Dictated by: Dictated on workstation # [id number]
== END ==
LOC: RAD 09:44
PROVIDERS: ATTEND Nurse Practitioner
DX: N28.1 Cyst of kidney, acquired (principal); T50.4X5A Adverse effect of drugs affecting uric acid metabolism, initial encounter; I13.0 Hypertensive heart and chronic kidney disease with heart failure and stage 1 through stage 4 chronic kidney disease, or unspecified chronic kidney disease; I50.9 Heart failure, unspecified; D63.1 Anemia in chronic kidney disease; E11.22 Type 2 diabetes mellitus with diabetic chronic kidney disease; E44.1 Mild protein-calorie malnutrition; N18.4 Chronic kidney disease, stage 4 (severe); E87.3 Alkalosis; E55.9 Vitamin D deficiency, unspecified; N25.81 Secondary hyperparathyroidism of renal origin; E78.4 Other hyperlipidemia; E79.0 Hyperuricemia without signs of inflammatory arthritis and tophaceous disease
CPT/HCPCS: 76770

== ENCOUNTER 2018-03-19 14:25 | Outpatient (RCR) | payer MEDICARE | END 2018-03-29 | disposition home or self-care (01) | PROVIDERS: ATTEND Nurse Practitioner | DX: I69.354 Hemiplegia and hemiparesis following cerebral infarction affecting left non-dominant side (principal); Z91.81 History of falling; I10 Essential (primary) hypertension; E11.9 Type 2 diabetes mellitus without complications; H91.90 Unspecified hearing loss, unspecified ear ==

== ENCOUNTER 2018-04-16 15:08 | Outpatient (RCR) | payer MEDICARE | END 2018-04-16 16:09 | disposition home or self-care (01) | PROVIDERS: ATTEND Nurse Practitioner | DX: I69.354 Hemiplegia and hemiparesis following cerebral infarction affecting left non-dominant side (principal); Z91.81 History of falling; I10 Essential (primary) hypertension; E11.9 Type 2 diabetes mellitus without complications; H91.90 Unspecified hearing loss, unspecified ear ==

== ENCOUNTER 2018-07-08 12:56 | Emergency (ER) | payer MEDICARE ==
[~2018-07-08] VITALS: Ht 182.9 cm; Wt 122.5 kg
[~2018-07-08 12:56] MED LIST changes: -RANI-425 PO; +RANI-591 PO
--- OUTSIDE RECORDS SUMMARY | 2018-07-08 13:01 | XMS REPORT | Continuity of Care Document ---
Author Author [facility] Organization [facility] Address Unknown Phone Unavailable Care Team Providers Care Home Health Care Worker Name Role Phone ASHLEY SEXTON MD PP Insurance Providers Payer Name Policy Number Subscriber Name Relationship [employer] [id number] Darin Osorio Self / Same As Patient Wps Medicare [id number] Darin Osorio Self / Same As Patient Advance Directives Directive Response Recorded Date Advance Directives N 12/22/12 11:20am Health Care Power of Resource Room Special Education Teacher N 12/22/12 11:20am Organ Donor N 12/22/12 11:20am Problems No Known Problems or Medical conditions. Family History History Response Recorded Date/Time Hx Family Cancer Y father had lung cancer 05/15/10 10:52am Hx Family Breast Cancer N 05/15/10 10: 52am Hx Family Lung Cancer Y 05/15/10 10:52am Hx Family Colorectal Cancer N 05/15/10 10 :52am Hx Family Cardiac Disorders N 05/15/10 10 :52am Allergies, Adverse Reactions, Alerts Allergen Type Severity Reaction Last Updated No Known Drug Allergies 05/15/10 Medications Medication Dose Units Route Sig Qty Days Levofloxacin (Levaquin Po) 1 Each PO DAILY Glipizide 1 Each PO BID Furosemide 1 Each PO BID Acetaminophen (Tylenol) 2 Tab PO Q8H PRN Ranitidine Hcl 2 Tab PO DAILY Fenofibrate (Tricor) 1 Each PO DAILY Atorvastatin Calcium (Lipitor 80MG) 1 Each PO DAILY Metoprolol Tartrate (Metoprolol Tartrate 50 Mg) 1 Each PO BID Allopurinol (Zyloprim) 100 Mg PO BIDPC Doxercalciferol (Hectorol) 2.5 Mcg PO 3 times weekly Response Recorded Date/Time Status not known Unknown Results No Known Relevant Diagnostic Tests, Laboratory Data and/or Discharge Summary. Encounters Encounter Location Date/Time Discharged Inpatient [facility] 10:11am
--- OUTSIDE RECORDS SUMMARY | 2018-07-08 13:02 | XMS REPORT | Continuity of Care Document ---
Author Author [facility] Organization [facility] Address Unknown Phone Unavailable Allergies Active Description Code Type Severity Reaction Onset Reported/Identified Relationship to Patient Clinical Status Yes No Known Drug Allergies [id number] Drug Allergy Unknown N/A 05/15/2010 Medications There is no data. Problems Date Dx Coded Attending Type Code Diagnosis Diagnosed By CALI OROZCO Ot I69.354 HEMIPLGA FOLLOWING CEREBRAL INFRC AFFECT 05/29/1608 KUNAL ANDERSON APRN Ot E11.9 TYPE 2 DIABETES MELLITUS WITHOUT COMPLIC 05/29/1608 KUNAL ANDERSON APRN Ot H91.90 UNSPECIFIED HEARING LOSS, UNSPECIFIED EA 05/29/1608 KUNAL ANDERSON APRN Ot I10 ESSENTIAL (PRIMARY) HYPERTENSION 05/29/1608 KUNAL ANDERSON APRN Ot I69.354 HEMIPLGA FOLLOWING CEREBRAL INFRC AFFECT 05/29/1608 KUNAL ANDERSON APRN Ot Z91.81 HISTORY OF FALLING 03/22/2013 HENRIK VELAZQUEZ MD Ot 285.21 ANEMIA IN CHRONIC KIDNEY DISEASE 03/22/2013 HENRIK VELAZQUEZ MD Ot 585.4 CHRONIC KIDNEY DISEASE, STAGE IV (SEVERE 03/22/2013 HENRIK VELAZQUEZ MD Ot V58.69 OTH MED,LT,CURRENT USE 06/28/2013 HENRIK VELAZQUEZ MD Ot 285.21 ANEMIA IN CHRONIC KIDNEY DISEASE 06/28/2013 HENRIK VELAZQUEZ MD Ot 585.4 CHRONIC KIDNEY DISEASE, STAGE IV (SEVERE 06/28/2013 HENRIK VELAZQUEZ MD Ot V58.69 OTH MED,LT,CURRENT USE 06/29/2013 HENRIK VELAZQUEZ MD Ot 280.9 IRON DEFIC ANEMIA NOS 06/29/2013 ABOUL-MAGD MD, AHMED S Ot 285.21 ANEMIA IN CHRONIC KIDNEY DISEASE 06/29/2013 CAROLINE CARSON, HENRIK S Ot 585.4 CHRONIC KIDNEY DISEASE, STAGE IV (SEVERE 10/04/2013 CAROLINE CARSON, HENRIK S Ot 285.21 ANEMIA IN CHRONIC KIDNEY DISEASE 10/04/2013 CAROLINE CARSON, HENRIK S Ot 585.4 CHRONIC KIDNEY DISEASE, STAGE IV (SEVERE 10/04/2013 CAROLINE CARSON, HENRIK S Ot V58.69 OTH MED,LT,CURRENT USE 01/24/2014 CAROLINE CARSON, HENRIK S Ot 285.21 ANEMIA IN CHRONIC KIDNEY DISEASE 01/24/2014 CAROLINE CARSON, HENRIK S Ot 585.4 CHRONIC KIDNEY DISEASE, STAGE IV (SEVERE 01/24/2014 CAROLINE CARSON, HENRIK Avilez Ot V58.69 OTH MED,LT,CURRENT USE 01/29/2016 HENRIK VELAZQUEZ MD S Ot 280.9 IRON DEFIC ANEMIA NOS 01/29/2016 CAROLINE CARSON, HENRIK S Ot 285.21 ANEMIA IN CHRONIC KIDNEY DISEASE 01/29/2016 CAROLINE CARSON, HENRIK S Ot 585.4 CHRONIC KIDNEY DISEASE, STAGE IV (SEVERE 11/28/2016 CAROLINE CARSON, HENRIK S Ot 280.9 IRON DEFIC ANEMIA NOS 11/28/2016 CAROLINE CARSON, HENRIK S Ot 285.21 ANEMIA IN CHRONIC KIDNEY DISEASE 11/28/2016 HENRIK VELAZQUEZ MD S Ot 585.4 CHRONIC KIDNEY DISEASE, STAGE IV (SEVERE 10/13/2017 Ot 285.21 ANEMIA IN CHRONIC KIDNEY DISEASE 10/13/2017 Ot 585.4 CHRONIC KIDNEY DISEASE, STAGE IV (SEVERE 10/13/2017 Ot V58.69 OTH MED,LT, CURRENT USE 10/14/2017 JOSE LOPEZ MD Ot 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 10/14/2017 JOSE LOPEZ MD Ot I12.9 HYPERTENSIVE CHRONIC KIDNEY DISEASE W ST 10/14/2017 JOSE LOPEZ MD Ot I25.2 OLD MYOCARDIAL INFARCTION 10/14/2017 JOSE LOPEZ MD Ot I63.9 CEREBRAL INFARCTION, UNSPECIFIED 10/14/2017 JOSE LOPEZ MD Ot I69.354 HEMIPLGA FOLLOWING CEREBRAL INFRC AFFECT 10/14/2017 JOSE LOPEZ MD Ot I69.391 DYSPHAGIA FOLLOWING CEREBRAL INFARCTION 10/14/2017 JOSE LOPEZ MD Ot 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 10/14/2017 JOSE LOPEZ MD Ot N18.4 CHRONIC KIDNEY DISEASE, STAGE 4 (SEVERE) 10/14/2017 JOSE LOPEZ MD Ot Z66 DO NOT RESUSCITATE 10/14/2017 JOSE LOPEZ MD Ot Z79.4 ORACLE MANAGER (CURRENT) USE OF INSULIN 10/14/2017 JOSE LOPEZ MD Ot Z79.84 SHELTER (CURRENT) USE OF ORAL HYPOGLYC 10/14/2017 JOSE LOPEZ MD Ot Z87.891 PERSONAL HISTORY OF NICOTINE DEPENDENCE 10/15/2017 ADALBERTO FRANKLIN MD Ot 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 10/15/2017 ADALBERTO FRANKLIN MD Ot I12.9 HYPERTENSIVE CHRONIC KIDNEY DISEASE W ST 10/15/2017 ADALBERTO FRANKLIN MD Ot I69.354 HEMIPLGA FOLLOWING CEREBRAL INFRC AFFECT 10/15/2017 ADALBERTO FRANKLIN MD Ot I69.391 DYSPHAGIA FOLLOWING CEREBRAL INFARCTION 10/15/2017 ADALBERTO FRANKLIN MD Ot 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 10/15/2017 ADALBERTO FRANKLIN MD Ot N18.9 CHRONIC KIDNEY DISEASE, UNSPECIFIED 10/15/2017 ADALBERTO FRANKLIN MD Ot R13.12 DYSPHAGIA, OROPHARYNGEAL PHASE 10/15/2017 ADALBERTO FRANKLIN MD Ot Z79.4 SHELTER (CURRENT) USE OF INSULIN 10/15/2017 ADALBERTO FRANKLIN MD Ot Z87.891 PERSONAL HISTORY OF NICOTINE DEPENDENCE 10/15/2017 ADALBERTO FRANKLIN MD Ot 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 10/15/2017 ADALBERTO FRANKLIN MD Ot I12.9 HYPERTENSIVE CHRONIC KIDNEY DISEASE W ST 10/15/2017 ADALBERTO FRANKLIN MD Ot I69.354 HEMIPLGA FOLLOWING CEREBRAL INFRC AFFECT 10/15/2017 ADALBERTO FRANKLIN MD Ot I69.391 DYSPHAGIA FOLLOWING CEREBRAL INFARCTION 10/15/2017 ADALBERTO FRANKLIN MD Ot 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 10/15/2017 ADALBERTO FRANKLIN MD Ot N18.9 CHRONIC KIDNEY DISEASE, UNSPECIFIED 10/15/2017 ADALBERTO FRANKLIN MD Ot R13.12 DYSPHAGIA, OROPHARYNGEAL PHASE 10/15/2017 ADALBERTO FRANKLIN MD Ot Z79.4 ORACLE MANAGER (CURRENT) USE OF INSULIN 10/15/2017 ADALBERTO FRANKLIN MD Ot Z87.891 PERSONAL HISTORY OF NICOTINE DEPENDENCE 10/17/2017 ADALBERTO FRANKLIN MD Ot 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 10/17/2017 ADALBERTO FRANKLIN MD Ot I12.9 HYPERTENSIVE CHRONIC KIDNEY DISEASE W ST 10/17/2017 ADALBERTO FRANKLIN MD Ot I69.354 HEMIPLGA FOLLOWING CEREBRAL INFRC AFFECT 10/17/2017 ADALBERTO FRANKLIN MD Ot I69.391 DYSPHAGIA FOLLOWING CEREBRAL INFARCTION 10/17/2017 ADALBERTO FRANKLIN MD Ot 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 10/17/2017 ADALBERTO FRANKLIN MD Ot N18.9 CHRONIC KIDNEY DISEASE, UNSPECIFIED 10/17/2017 ADALBERTO FRANKLIN MD Ot R13.12 DYSPHAGIA, OROPHARYNGEAL PHASE 10/17/2017 ADALBERTO FRANKLIN MD Ot Z79.4 ORACLE MANAGER (CURRENT) USE OF INSULIN 10/17/2017 ADALBERTO FRANKLIN MD Ot Z87.891 PERSONAL HISTORY OF NICOTINE DEPENDENCE 10/17/2017 ADALBERTO FRANKLIN MD Ot 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 10/17/2017 ADALBERTO FRANKLIN MD Ot I12.9 HYPERTENSIVE CHRONIC KIDNEY DISEASE W ST 10/17/2017 ADALBERTO FRANKLIN MD Ot I69.354 HEMIPLGA FOLLOWING CEREBRAL INFRC AFFECT 10/17/2017 ADALBERTO FRANKLIN MD E Ot I69.391 DYSPHAGIA FOLLOWING CEREBRAL INFARCTION 10/17/2017 ADALBERTO FRANKLIN MD E Ot 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 10/17/2017 ADALBERTO FRANKLIN MD Ot N18.9 CHRONIC KIDNEY DISEASE, UNSPECIFIED 10/17/2017 ADALBERTO FRANKLIN MD Ot R13.12 DYSPHAGIA, OROPHARYNGEAL PHASE 10/17/2017 ADALBERTO FRANKLIN MD Ot Z79.4 ORACLE MANAGER (CURRENT) USE OF INSULIN 10/17/2017 ADALBERTO FRANKLIN MD Ot Z87.891 PERSONAL HISTORY OF NICOTINE DEPENDENCE 10/17/2017 ADALBERTO FRANKLIN MD Ot 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 10/17/2017 ADALBERTO FRANKLIN MD Ot I12.9 HYPERTENSIVE CHRONIC KIDNEY DISEASE W ST 10/17/2017 ADALBERTO FRANKLIN MD Ot I69.354 HEMIPLGA FOLLOWING CEREBRAL INFRC AFFECT 10/17/2017 ADALBERTO FRANKLIN MD Ot I69.391 DYSPHAGIA FOLLOWING CEREBRAL INFARCTION 10/17/2017 ADALBERTO FRANKLIN MD Ot 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 10/17/2017 ADALBERTO FRANKLIN MD Ot N18.9 CHRONIC KIDNEY DISEASE, UNSPECIFIED 10/17/2017 ADALBERTO FRANKLIN MD Ot R13.12 DYSPHAGIA, OROPHARYNGEAL PHASE 10/17/2017 ADALBERTO FRANKLIN MD Ot Z79.4 SHELTER (CURRENT) USE OF INSULIN 10/17/2017 ADALBERTO FRANKLIN MD Ot Z87.891 PERSONAL HISTORY OF NICOTINE DEPENDENCE 10/17/2017 ADALBERTO FRANKLIN MD Ot 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 10/17/2017 ADALBERTO FRANKLIN MD Ot I12.9 HYPERTENSIVE CHRONIC KIDNEY DISEASE W ST 10/17/2017 ADALBERTO FRANKLIN MD Ot I69.354 HEMIPLGA FOLLOWING CEREBRAL INFRC AFFECT 10/17/2017 ADALBERTO FRANKLIN MD Ot I69.391 DYSPHAGIA FOLLOWING CEREBRAL INFARCTION 10/17/2017 ADALBERTO FRANKLIN MD Ot 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 10/17/2017 ADALBERTO FRANKLIN MD Ot N18.9 CHRONIC KIDNEY DISEASE, UNSPECIFIED 10/17/2017 ADALBERTO FRANKLIN MD Ot R13.12 DYSPHAGIA, OROPHARYNGEAL PHASE 10/17/2017 ADALBERTO FRANKLIN MD Ot Z79.4 ORACLE MANAGER (CURRENT) USE OF INSULIN 10/17/2017 ADALBERTO FRANKLIN MD Ot Z87.891 PERSONAL HISTORY OF NICOTINE DEPENDENCE 10/17/2017 ADALBERTO FRANKLIN MD Ot 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 10/17/2017 ADALBERTO FRANKLIN MD Ot I12.9 HYPERTENSIVE CHRONIC KIDNEY DISEASE W ST 10/17/2017 ADALBERTO FRANKLIN MD Ot I69.354 HEMIPLGA FOLLOWING CEREBRAL INFRC AFFECT 10/17/2017 ADALBERTO FRANKLIN MD Ot I69.391 DYSPHAGIA FOLLOWING CEREBRAL INFARCTION 10/17/2017 ADALBERTO FRANKLIN MD Ot 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 10/17/2017 ADALBERTO FRANKLIN MD Ot N18.9 CHRONIC KIDNEY DISEASE, UNSPECIFIED 10/17/2017 ADALBERTO FRANKLIN MD Ot R13.12 DYSPHAGIA, OROPHARYNGEAL PHASE 10/17/2017 ADALBERTO FRANKLIN MD Ot Z79.4 ORACLE MANAGER (CURRENT) USE OF INSULIN 10/17/2017 ADALBERTO FRANKLIN MD Ot Z87.891 PERSONAL HISTORY OF NICOTINE DEPENDENCE 10/18/2017 ADALBERTO FRANKLIN MD Ot 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 10/18/2017 ADALBERTO FRANKLIN MD Ot I12.9 HYPERTENSIVE CHRONIC KIDNEY DISEASE W ST 10/18/2017 ADALBERTO FRANKLIN MD Ot I69.354 HEMIPLGA FOLLOWING CEREBRAL INFRC AFFECT 10/18/2017 ADALBERTO FRANKLIN MD Ot I69.391 DYSPHAGIA FOLLOWING CEREBRAL INFARCTION 10/18/2017 ADALBERTO FRANKLIN MD Ot 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 10/18/2017 ADALBERTO FRANKLIN MD Ot N18.9 CHRONIC KIDNEY DISEASE, UNSPECIFIED 10/18/2017 ADALBERTO FRANKLIN MD Ot R13.12 DYSPHAGIA, OROPHARYNGEAL PHASE 10/18/2017 ADALBERTO FRANKLIN MD Ot Z79.4 ORACLE MANAGER (CURRENT) USE OF INSULIN 10/18/2017 ADALBERTO FRANKLIN MD Ot Z87.891 PERSONAL HISTORY OF NICOTINE DEPENDENCE 10/20/2017 ADALBERTO FRANKLIN MD Ot 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 10/20/2017 ADALBERTO FRANKLIN MD Ot I12.9 HYPERTENSIVE CHRONIC KIDNEY DISEASE W ST 10/20/2017 ADALBERTO FRANKLIN MD Ot I69.354 HEMIPLGA FOLLOWING CEREBRAL INFRC AFFECT 10/20/2017 ADALBERTO FRANKLIN MD Ot I69.391 DYSPHAGIA FOLLOWING CEREBRAL INFARCTION 10/20/2017 ADALBERTO FRANKLIN MD Ot 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 10/20/2017 ADALBERTO FRANKLIN MD Ot N18.9 CHRONIC KIDNEY DISEASE, UNSPECIFIED 10/20/2017 ADALBERTO FRANKLIN MD Ot R13.12 DYSPHAGIA, OROPHARYNGEAL PHASE 10/20/2017 ADALBERTO FRANKLIN MD Ot Z79.4 SHELTER (CURRENT) USE OF INSULIN 10/20/2017 ADALBERTO FRANKLIN MD Ot Z87.891 PERSONAL HISTORY OF NICOTINE DEPENDENCE 10/21/2017 ADALBERTO FRANKLIN MD Ot 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 10/21/2017 ADALBERTO FRANKLIN MD Ot I12.9 HYPERTENSIVE CHRONIC KIDNEY DISEASE W ST 10/21/2017 ADALBERTO FRANKLIN MD Ot I69.354 HEMIPLGA FOLLOWING CEREBRAL INFRC AFFECT 10/21/2017 ADALBERTO FRANKLIN MD Ot I69.391 DYSPHAGIA FOLLOWING CEREBRAL INFARCTION 10/21/2017 ADALBERTO FRANKLIN MD Ot 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 10/21/2017 ADALBERTO FRANKLIN MD Ot N18.9 CHRONIC KIDNEY DISEASE, UNSPECIFIED 10/21/2017 ADALBERTO FRANKLIN MD Ot R13.12 DYSPHAGIA, OROPHARYNGEAL PHASE 10/21/2017 ADALBERTO FRANKLIN MD Ot Z79.4 ORACLE MANAGER (CURRENT) USE OF INSULIN 10/21/2017 ADALBERTO FRANKLIN MD Ot Z87.891 PERSONAL HISTORY OF NICOTINE DEPENDENCE 10/22/2017 ADALBERTO FRANKLIN MD Ot 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 10/22/2017 ADALBERTO FRANKLIN MD Ot I12.9 HYPERTENSIVE CHRONIC KIDNEY DISEASE W ST 10/22/2017 ADALBERTO FRANKLIN MD Ot I69.354 HEMIPLGA FOLLOWING CEREBRAL INFRC AFFECT 10/22/2017 ADALBERTO FRANKLIN MD Ot I69.391 DYSPHAGIA FOLLOWING CEREBRAL INFARCTION 10/22/2017 ADALBERTO FRANKLIN MD Ot 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 10/22/2017 ADALBERTO FRANKLIN MD Ot N18.9 CHRONIC KIDNEY DISEASE, UNSPECIFIED 10/22/2017 ADALBERTO FRANKLIN MD Ot R13.12 DYSPHAGIA, OROPHARYNGEAL PHASE 10/22/2017 ADALBERTO FRANKLIN MD Ot Z79.4 SHELTER (CURRENT) USE OF INSULIN 10/22/2017 ADALBERTO FRANKLIN MD Ot Z87.891 PERSONAL HISTORY OF NICOTINE DEPENDENCE 10/23/2017 ADALBERTO FRANKLIN MD Ot 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 10/23/2017 ADALBERTO FRANKLIN MD Ot I12.9 HYPERTENSIVE CHRONIC KIDNEY DISEASE W ST 10/23/2017 ADALBERTO FRANKLIN MD Ot I69.354 HEMIPLGA FOLLOWING CEREBRAL INFRC AFFECT 10/23/2017 ADALBERTO FRANKLIN MD Ot I69.391 DYSPHAGIA FOLLOWING CEREBRAL INFARCTION 10/23/2017 ADALBERTO FRANKLIN MD Ot 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 10/23/2017 ADALBERTO FRANKLIN MD Ot N18.9 CHRONIC KIDNEY DISEASE, UNSPECIFIED 10/23/2017 ADALBERTO FRANKLIN MD Ot R13.12 DYSPHAGIA, OROPHARYNGEAL PHASE 10/23/2017 ADALBERTO FRANKLIN MD Ot Z79.4 SHELTER (CURRENT) USE OF INSULIN 10/23/2017 ADALBERTO FRANKLIN MD Ot Z87.891 PERSONAL HISTORY OF NICOTINE DEPENDENCE 10/23/2017 ADALBERTO FRANKLIN MD Ot 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 10/23/2017 ADALBERTO FRANKLIN MD Ot I12.9 HYPERTENSIVE CHRONIC KIDNEY DISEASE W ST 10/23/2017 ADALBERTO FRANKLIN MD Ot I69.354 HEMIPLGA FOLLOWING CEREBRAL INFRC AFFECT 10/23/2017 ADALBERTO FRANKLIN MD Ot I69.391 DYSPHAGIA FOLLOWING CEREBRAL INFARCTION 10/23/2017 ADALBERTO FRANKLIN MD Ot 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 10/23/2017 ADALBERTO FRANKLIN MD Ot N18.9 CHRONIC KIDNEY DISEASE, UNSPECIFIED 10/23/2017 ADALBERTO FRANKLIN MD Ot R13.12 DYSPHAGIA, OROPHARYNGEAL PHASE 10/23/2017 ADALBERTO FRANKLIN MD Ot Z79.4 SHELTER (CURRENT) USE OF INSULIN 10/23/2017 ADALBERTO FRANKLIN MD Ot Z87.891 PERSONAL HISTORY OF NICOTINE DEPENDENCE 10/24/2017 ADALBERTO FRANKLIN MD Ot 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 10/24/2017 ADALBERTO FRANKLIN MD Ot I12.9 HYPERTENSIVE CHRONIC KIDNEY DISEASE W ST 10/24/2017 ADALBERTO FRANKLIN MD Ot I69.354 HEMIPLGA FOLLOWING CEREBRAL INFRC AFFECT 10/24/2017 ADALBERTO FRANKLIN MD Ot I69.391 DYSPHAGIA FOLLOWING CEREBRAL INFARCTION 10/24/2017 ADALBERTO FRANKLIN MD Ot 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 10/24/2017 ADALBERTO FRANKLIN MD Ot N18.9 CHRONIC KIDNEY DISEASE, UNSPECIFIED 10/24/2017 ADALBERTO FRANKLIN MD Ot R13.12 DYSPHAGIA, OROPHARYNGEAL PHASE 10/24/2017 ADALBERTO FRANKLIN MD Ot Z79.4 ORACLE MANAGER (CURRENT) USE OF INSULIN 10/24/2017 ADALBERTO FRANKLIN MD Ot Z87.891 PERSONAL HISTORY OF NICOTINE DEPENDENCE 10/25/2017 ADALBERTO FRANKLIN MD Ot 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 10/25/2017 ADALBERTO FRANKLIN MD Ot I12.9 HYPERTENSIVE CHRONIC KIDNEY DISEASE W ST 10/25/2017 ADALBERTO FRANKLIN MD Ot I69.354 HEMIPLGA FOLLOWING CEREBRAL INFRC AFFECT 10/25/2017 ADALBERTO FRANKLIN MD Ot I69.391 DYSPHAGIA FOLLOWING CEREBRAL INFARCTION 10/25/2017 ADALBERTO FRANKLIN MD Ot 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 10/25/2017 ADALBERTO FRANKLIN MD Ot N18.9 CHRONIC KIDNEY DISEASE, UNSPECIFIED 10/25/2017 ADALBERTO FRANKLIN MD Ot R13.12 DYSPHAGIA, OROPHARYNGEAL PHASE 10/25/2017 ADALBERTO FRANKLIN MD Ot Z79.4 ORACLE MANAGER (CURRENT) USE OF INSULIN 10/25/2017 ADALBERTO FRANKLIN MD Ot Z87.891 PERSONAL HISTORY OF NICOTINE DEPENDENCE 10/26/2017 ADALBERTO FRANKLIN MD Ot 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 10/26/2017 ADALBERTO FRANKLIN MD Ot I12.9 HYPERTENSIVE CHRONIC KIDNEY DISEASE W ST 10/26/2017 ADALBERTO FRANKLIN MD Ot I69.354 HEMIPLGA FOLLOWING CEREBRAL INFRC AFFECT 10/26/2017 ADALBERTO FRANKLIN MD Ot I69.391 DYSPHAGIA FOLLOWING CEREBRAL INFARCTION 10/26/2017 ADALBERTO FRANKLIN MD Ot 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 10/26/2017 ADALBERTO FRANKLIN MD Ot N18.9 CHRONIC KIDNEY DISEASE, UNSPECIFIED 10/26/2017 ADALBERTO FRANKLIN MD Ot R13.12 DYSPHAGIA, OROPHARYNGEAL PHASE 10/26/2017 ADALBERTO FRANKLIN MD Ot Z79.4 SHELTER (CURRENT) USE OF INSULIN 10/26/2017 ADALBERTO FRANKLIN MD Ot Z87.891 PERSONAL HISTORY OF NICOTINE DEPENDENCE 10/27/2017 ADALBERTO FRANKLIN MD Ot 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 10/27/2017 ADALBERTO FRANKLIN MD Ot I12.9 HYPERTENSIVE CHRONIC KIDNEY DISEASE W ST 10/27/2017 ADALBERTO FRANKLIN MD Ot I69.354 HEMIPLGA FOLLOWING CEREBRAL INFRC AFFECT 10/27/2017 ADALBERTO FRANKLIN MD Ot I69.391 DYSPHAGIA FOLLOWING CEREBRAL INFARCTION 10/27/2017 ADALBERTO FRANKLIN MD Ot 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 10/27/2017 ADALBERTO FRANKLIN MD Ot N18.9 CHRONIC KIDNEY DISEASE, UNSPECIFIED 10/27/2017 FRANKLIN MD, ADALBERTO E Ot R13.12 DYSPHAGIA, OROPHARYNGEAL PHASE 10/27/2017 ADALBERTO FRANKLIN MD Ot Z79.4 SHELTER (CURRENT) USE OF INSULIN 10/27/2017 ADALBERTO FRANKLIN MD Ot Z87.891 PERSONAL HISTORY OF NICOTINE DEPENDENCE 10/28/2017 ADALBERTO FRANKLIN MD Ot 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 10/28/2017 ADALBERTO FRANKLIN MD Ot I12.9 HYPERTENSIVE CHRONIC KIDNEY DISEASE W ST 10/28/2017 ADALBERTO FRANKLIN MD Ot I69.354 HEMIPLGA FOLLOWING CEREBRAL INFRC AFFECT 10/28/2017 ADALBERTO FRANKLIN MD Ot I69.391 DYSPHAGIA FOLLOWING CEREBRAL INFARCTION 10/28/2017 ADALBERTO FRANKLIN MD Ot 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 10/28/2017 ADALBERTO FRANKLIN MD Ot N18.9 CHRONIC KIDNEY DISEASE, UNSPECIFIED 10/28/2017 ADALBERTO FRANKLIN MD Ot R13.12 DYSPHAGIA, OROPHARYNGEAL PHASE 10/28/2017 DAALBERTO FRANKLIN MD Ot Z79.4 SHELTER (CURRENT) USE OF INSULIN 10/28/2017 ADALBERTO FRANKLIN MD Ot Z87.891 PERSONAL HISTORY OF NICOTINE DEPENDENCE 10/28/2017 ADALBERTO FRANKLIN MD Ot 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 10/28/2017 ADALBERTO FRANKLIN MD Ot 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 10/28/2017 ADALBERTO FRANKLIN MD Ot I12.9 HYPERTENSIVE CHRONIC KIDNEY DISEASE W ST 10/28/2017 ADALBERTO FRANKLIN MD Ot I69.322 DYSARTHRIA FOLLOWING CEREBRAL INFARCTION 10/28/2017 ADALBERTO FRANKLIN MD Ot I69.354 HEMIPLGA FOLLOWING CEREBRAL INFRC AFFECT 10/28/2017 ADALBERTO FRANKLIN MD Ot I69.391 DYSPHAGIA FOLLOWING CEREBRAL INFARCTION 10/28/2017 ADALBERTO FRANKLIN MD Ot 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 10/28/2017 ADALBERTO FRANKLIN MD Ot K59.00 CONSTIPATION, UNSPECIFIED 10/28/2017 ADALBERTO FRANKLIN MD Ot N18.9 CHRONIC KIDNEY DISEASE, UNSPECIFIED 10/28/2017 ADALBERTO FRANKLIN MD Ot R13.12 DYSPHAGIA, OROPHARYNGEAL PHASE 10/28/2017 ADALBERTO FRANKLIN MD Ot Z66 DO NOT RESUSCITATE 10/28/2017 ADALBERTO FRANKLIN MD Ot Z79.4 ORACLE MANAGER (CURRENT) USE OF INSULIN 10/28/2017 NOEMI CARSON, ADALBERTO Bey Ot Z87.891 PERSONAL HISTORY OF NICOTINE DEPENDENCE 12/01/2017 CALI OROZCO Ot I69.354 HEMIPLGA FOLLOWING CEREBRAL INFRC AFFECT 12/01/2017 CALI OROZCO Ot I69.354 HEMIPLGA FOLLOWING CEREBRAL INFRC AFFECT 12/01/2017 CALI OROZCO Ot I69.354 HEMIPLGA FOLLOWING CEREBRAL INFRC AFFECT 12/19/2017 CALI OROZCO Ot I69.354 HEMIPLGA FOLLOWING CEREBRAL INFRC AFFECT 01/13/2018 CALI OROZCO Ot I69.354 HEMIPLGA FOLLOWING CEREBRAL INFRC AFFECT 01/13/2018 Ot 285.21 ANEMIA IN CHRONIC KIDNEY DISEASE 01/13/2018 Ot 585.4 CHRONIC KIDNEY DISEASE, STAGE IV (SEVERE 01/13/2018 Ot V58.69 OTH MED,LT, CURRENT USE 01/13/2018 CALI OROZCO Ot I69.354 HEMIPLGA FOLLOWING CEREBRAL INFRC AFFECT 01/23/2018 CALI OROZCO Ot I69.354 HEMIPLGA FOLLOWING CEREBRAL INFRC AFFECT 02/25/2018 Ot 285.21 ANEMIA IN CHRONIC KIDNEY DISEASE 02/25/2018 Ot 585.4 CHRONIC KIDNEY DISEASE, STAGE IV (SEVERE 02/25/2018 Ot V58.69 OTH MED,LT, CURRENT USE 03/03/2018 Ot 285.21 ANEMIA IN CHRONIC KIDNEY DISEASE 03/03/2018 Ot 585.4 CHRONIC KIDNEY DISEASE, STAGE IV (SEVERE 03/03/2018 Ot V58.69 OTH MED,LT, CURRENT USE 03/13/2018 KUNAL ANDERSON APRN Ot D63.1 ANEMIA IN CHRONIC KIDNEY DISEASE 03/13/2018 KUNAL ANDERSON APRN Ot 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 03/13/2018 KUNAL ANDERSON APRN Ot 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 03/13/2018 KUNAL ANDERSON APRN Ot E55.9 VITAMIN D DEFICIENCY, UNSPECIFIED 03/13/2018 KUNAL ANDERSON APRN Ot E78.4 OTHER HYPERLIPIDEMIA 03/13/2018 KUNAL ANDERSON APRN Ot E79.0 HYPERURICEMIA W/O SIGNS OF INFLAM ARTHRI 03/13/2018 KUNAL ANDERSON APRN Ot E87.3 ALKALOSIS 03/13/2018 KUNAL ANDERSON APRN Ot I13.0 HYP HRT CHR KDNY DIS W HRT FAIL AND ST 03/13/2018 KUNAL ANDERSON APRN Ot I50.9 HEART FAILURE, UNSPECIFIED 03/13/2018 KUNAL ANDERSON APRN Ot N18.4 CHRONIC KIDNEY DISEASE, STAGE 4 (SEVERE) 03/13/2018 KUNAL ANDERSON APRN Ot N25.81 SECONDARY HYPERPARATHYROIDISM OF RENAL O 03/13/2018 KUNAL ANDERSON APRN Ot N28.1 CYST OF KIDNEY, ACQUIRED 03/13/2018 KUNAL ANDERSON APRN Ot T50.4X5A ADVERSE EFFECT OF DRUGS AFFECTING URIC A 03/24/2018 KUNAL ANDERSON APRN Ot E11.9 TYPE 2 DIABETES MELLITUS WITHOUT COMPLIC 03/24/2018 KUNAL ANDERSON APRN Ot H91.90 UNSPECIFIED HEARING LOSS, UNSPECIFIED EA 03/24/2018 KUNAL ANDERSON APRN Ot I10 ESSENTIAL (PRIMARY) HYPERTENSION 03/24/2018 KUNAL ANDERSON APRN Ot I69.354 HEMIPLGA FOLLOWING CEREBRAL INFRC AFFECT 03/24/2018 KUNAL ANDERSON APRN Ot Z91.81 HISTORY OF FALLING 03/24/2018 KUNAL ANDERSON APRN Ot E11.9 TYPE 2 DIABETES MELLITUS WITHOUT COMPLIC 03/24/2018 KUNAL ANDERSON APRN Ot H91.90 UNSPECIFIED HEARING LOSS, UNSPECIFIED EA 03/24/2018 KUNAL ANDERSON APRN Ot I10 ESSENTIAL (PRIMARY) HYPERTENSION 03/24/2018 KUNAL ANDERSON APRN Ot I69.354 HEMIPLGA FOLLOWING CEREBRAL INFRC AFFECT 03/24/2018 KUNAL ANDERSON APRN Ot Z91.81 HISTORY OF FALLING 03/29/2018 KUNAL ANDERSON APRN Ot E11.9 TYPE 2 DIABETES MELLITUS WITHOUT COMPLIC 03/29/2018 KUNAL ANDERSON APRN Ot H91.90 UNSPECIFIED HEARING LOSS, UNSPECIFIED EA 03/29/2018 KUNAL ANDERSON APRN Ot I10 ESSENTIAL (PRIMARY) HYPERTENSION 03/29/2018 KUNAL ANDERSON APRN Ot I69.354 HEMIPLGA FOLLOWING CEREBRAL INFRC AFFECT 03/29/2018 KUNAL ANDERSON APRN Ot Z91.81 HISTORY OF FALLING 03/30/2018 KUNAL ANDERSON APRN Ot E11.9 TYPE 2 DIABETES MELLITUS WITHOUT COMPLIC 03/30/2018 KUNAL ANDERSON APRN Ot H91.90 UNSPECIFIED HEARING LOSS, UNSPECIFIED EA 03/30/2018 KUNAL ANDERSON APRN Ot I10 ESSENTIAL (PRIMARY) HYPERTENSION 03/30/2018 KUNAL ANDERSON APRN Ot I69.354 HEMIPLGA FOLLOWING CEREBRAL INFRC AFFECT 03/30/2018 KUNAL ANDERSON APRN Ot Z91.81 HISTORY OF FALLING 04/01/2018 KUNAL ANDERSON APRN Ot E11.9 TYPE 2 DIABETES MELLITUS WITHOUT COMPLIC 04/01/2018 KUNAL ANDERSON APRN Ot H91.90 UNSPECIFIED HEARING LOSS, UNSPECIFIED EA 04/01/2018 KUNAL ANDERSON APRN Ot I10 ESSENTIAL (PRIMARY) HYPERTENSION 04/01/2018 KUNAL ANDERSON APRN Ot I69.354 HEMIPLGA FOLLOWING CEREBRAL INFRC AFFECT 04/01/2018 KUNAL ANDERSON APRN Ot Z91.81 HISTORY OF FALLING 04/01/2018 KUNAL ANDERSON APRN Ot D63.1 ANEMIA IN CHRONIC KIDNEY DISEASE 04/01/2018 KUNAL ANDERSON APRN Ot 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 04/01/2018 KUNAL ANDERSON APRN Ot 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 04/01/2018 KUNAL ANDERSON APRN Ot E55.9 VITAMIN D DEFICIENCY, UNSPECIFIED 04/01/2018 KUNAL ANDERSON APRN Ot E78.4 OTHER HYPERLIPIDEMIA 04/01/2018 KUNAL ANDERSON APRN Ot E79.0 HYPERURICEMIA W/O SIGNS OF INFLAM ARTHRI 04/01/2018 KUNAL ANDERSON APRN Ot E87.3 ALKALOSIS 04/01/2018 KUNAL ANDERSON APRN Ot I13.0 HYP HRT CHR KDNY DIS W HRT FAIL AND ST 04/01/2018 KUNAL ANDERSON APRN Ot I50.9 HEART FAILURE, UNSPECIFIED 04/01/2018 KUNAL ANDERSON APRN Ot N18.4 CHRONIC KIDNEY DISEASE, STAGE 4 (SEVERE) 04/01/2018 KUNAL ANDERSON APRN Ot N25.81 SECONDARY HYPERPARATHYROIDISM OF RENAL O 04/01/2018 KUNAL ANDERSON APRN Ot N28.1 CYST OF KIDNEY, ACQUIRED 04/01/2018 KUNAL ANDERSON APRN Ot T50.4X5A ADVERSE EFFECT OF DRUGS AFFECTING URIC A 04/03/2018 KUNAL ANDERSON APRN Ot E11.9 TYPE 2 DIABETES MELLITUS WITHOUT COMPLIC 04/03/2018 KUNAL ANDERSON APRN Ot H91.90 UNSPECIFIED HEARING LOSS, UNSPECIFIED EA 04/03/2018 KUNAL ANDERSON APRN Ot I10 ESSENTIAL (PRIMARY) HYPERTENSION 04/03/2018 KUNAL ANDERSON APRN Ot I69.354 HEMIPLGA FOLLOWING CEREBRAL INFRC AFFECT 04/03/2018 KUNAL ANDERSON APRN Ot Z91.81 HISTORY OF FALLING 04/16/2018 KUNAL ANDERSON APRN Ot E11.9 TYPE 2 DIABETES MELLITUS WITHOUT COMPLIC 04/16/2018 KUNAL ANDERSON APRN Ot H91.90 UNSPECIFIED HEARING LOSS, UNSPECIFIED EA 04/16/2018 KUNAL ANDERSON APRN Ot I10 ESSENTIAL (PRIMARY) HYPERTENSION 04/16/2018 KUNAL ANDERSON APRN Ot I69.354 HEMIPLGA FOLLOWING CEREBRAL INFRC AFFECT 04/16/2018 KUNAL ANDERSON APRN Ot Z91.81 HISTORY OF FALLING 04/20/2018 KUNAL ANDERSON APRN Ot D63.1 ANEMIA IN CHRONIC KIDNEY DISEASE 04/20/2018 KUNAL ANDERSON APRN Ot 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 04/20/2018 KUNAL ANDERSON APRN Ot 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 04/20/2018 KUNAL ANDERSON APRN Ot E55.9 VITAMIN D DEFICIENCY, UNSPECIFIED 04/20/2018 KUNAL ANDERSON APRN Ot E78.4 OTHER HYPERLIPIDEMIA 04/20/2018 KUNAL ANDERSON APRN Ot E79.0 HYPERURICEMIA W/O SIGNS OF INFLAM ARTHRI 04/20/2018 KUNAL ANDERSON APRN Ot E87.3 ALKALOSIS 04/20/2018 KUNAL ANDERSON APRN Ot I13.0 HYP HRT CHR KDNY DIS W HRT FAIL AND ST 04/20/2018 KUNAL ANDERSON APRN Ot I50.9 HEART FAILURE, UNSPECIFIED 04/20/2018 KUNAL ANDERSON APRN Ot N18.4 CHRONIC KIDNEY DISEASE, STAGE 4 (SEVERE) 04/20/2018 KUNAL ANDERSON APRN Ot N25.81 SECONDARY HYPERPARATHYROIDISM OF RENAL O 04/20/2018 KUNAL ANDERSON APRN Ot 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 Results Test Result Range Complete blood count (CBC) with automated white blood cell (WBC) differential - 10/13/17 09:30 Blood leukocytes automated count (number/volume) 9.4 10*3/uL 4.3-11.0 Blood erythrocytes automated count (number/volume) 3.66 10*6/uL 4.35-5.85 Venous blood hemoglobin measurement (mass/volume) 11.5 g/dL 13.3-17.7 Blood hematocrit (volume fraction) 35 % 40-54 Automated erythrocyte mean corpuscular volume 96 [foz_us] 80-99 Automated erythrocyte mean corpuscular hemoglobin (mass per erythrocyte) 31 pg 25-34 Automated erythrocyte mean corpuscular hemoglobin concentration measurement ( mass/volume) 33 g/dL 32-36 Automated erythrocyte distribution width ratio 13.2 % 10.0-14.5 Automated blood platelet count (count/volume) 179 10*3/uL 130-400 Automated blood platelet mean volume measurement 9.8 [foz_us] 7.4-10.4 Automated blood neutrophils/100 leukocytes 63 % 42-75 Automated blood lymphocytes/100 leukocytes 29 % 12-44 Blood monocytes/100 leukocytes 7 % 0-12 Automated blood eosinophils/100 leukocytes 1 % 0-10 Automated blood basophils/100 leukocytes 1 % 0-10 Blood neutrophils automated count (number/volume) 5.9 10*3 1.8-7.8 Blood lymphocytes automated count (number/volume) 2.7 10*3 1.0-4.0 Blood monocytes automated count (number/volume) 0.7 10*3 0.0-1.0 Automated eosinophil count 0.1 10*3/uL 0.0-0.3 Automated blood basophil count (count/volume) 0.1 10*3/uL 0.0-0.1 PT panel in platelet poor plasma by coagulation assay - 10/13/17 09:30 Prothrombin time (PT) in platelet poor plasma by coagulation assay 13.5 s 12.2-14.7 INR in platelet poor plasma or blood by coagulation assay 1.0 0.8-1.4 Activated partial thromboplastin time (aPTT) in platelet poor plasma bycoagulation assay - 10/13/17 09:30 Activated partial thromboplastin time (aPTT) in platelet poor plasma bycoagulation assay 25 s 24-35 Comprehensive metabolic panel - 10/13/17 09:30 Serum or plasma sodium measurement (moles/volume) 140 mmol/L 135-145 Serum or plasma potassium measurement (moles/volume) 3.9 mmol/L 3.6-5.0 Serum or plasma chloride measurement (moles/volume) 105 mmol/L 98-107 Carbon dioxide 25 mmol/L 21-32 Serum or plasma anion gap determination (moles/volume) 10 mmol/L 5-14 Serum or plasma urea nitrogen measurement (mass/volume) 38 mg/dL 7-18 Serum or plasma creatinine measurement (mass/volume) 2.25 mg/dL 0.60-1.30 Serum or plasma urea nitrogen/creatinine mass ratio 17 NRG Serum or plasma creatinine measurement with calculation of estimated glomerular filtration rate 28 NRG Serum or plasma glucose measurement (mass/volume) 196 mg/dL 70-105 Serum or plasma calcium measurement (mass/volume) 9.3 mg/dL 8.5-10.1 Serum or plasma total bilirubin measurement (mass/volume) 0.6 mg/dL 0.1-1.0 Serum or plasma alkaline phosphatase measurement (enzymatic activity/volume) 58 U/L 40-136 Serum or plasma aspartate aminotransferase measurement (enzymatic activity/ volume) 13 U/L 5-34 Serum or plasma alanine aminotransferase measurement (enzymatic activity/volume ) 10 U/L 0-55 Serum or plasma protein measurement (mass/volume) 6.3 g/dL 6.4-8.2 Serum or plasma albumin measurement (mass/volume) 3.8 g/dL 3.2-4.5 Magnesium - 10/13/17 09:30 Magnesium 2.0 mg/dL 1.8-2.4 Serum or plasma troponin i.cardiac measurement (mass/volume) - 10/13/17 09:30 Serum or plasma troponin i.cardiac measurement (mass/volume) < ng/ mL <0.30 Serum or plasma C reactive protein measurement (mass/volume) - 10/13/17 09:30 Serum or plasma C reactive protein measurement (mass/volume) 0.21 mg /dL 0.00-0.50 Serum or plasma lithium measurement (moles/volume) - 10/13/17 09:30 BNP level 607.7 pg/mL <100.0 Capillary blood glucose measurement by glucometer (mass/volume) - 10/13/17 13: 24 Capillary blood glucose measurement by glucometer (mass/volume) 208 mg/dL 70-110 Capillary blood glucose measurement by glucometer (mass/volume) - 10/13/17 16: 20 Capillary blood glucose measurement by glucometer (mass/volume) 181 mg/dL 70-110 Complete urinalysis with reflex to culture - 10/13/17 18:20 Urine color determination KARY NRG Urine clarity determination CLEAR NRG Urine pH measurement by test strip 5 5-9 Specific gravity of urine by test strip 1.020 1.016- 1.022 Urine protein assay by test strip, semi-quantitative 3+ NEGATIVE Urine glucose detection by automated test strip NEGATIVE NEGATIVE Erythrocytes detection in urine sediment by light microscopy NEGATIVE NEGATIVE Urine ketones detection by automated test strip NEGATIVE NEGATIVE Urine nitrite detection by test strip NEGATIVE NEGATIVE Urine total bilirubin detection by test strip NEGATIVE NEGATIVE Urine urobilinogen measurement by automated test strip (mass/volume) NORMAL NORMAL Urine leukocyte esterase detection by dipstick NEGATIVE NEGATIVE Automated urine sediment erythrocyte count by microscopy (number/high power field) NONE NRG Automated urine sediment leukocyte count by microscopy (number/high power field ) NONE NRG Bacteria detection in urine sediment by light microscopy NONE NRG Squamous epithelial cells detection in urine sediment by light microscopy 0-2 NRG Crystals detection in urine sediment by light microscopy NONE NRG Casts detection in urine sediment by light microscopy NONE NRG Mucus detection in urine sediment by light microscopy NEGATIVE NRG Complete urinalysis with reflex to culture NO NRG Capillary blood glucose measurement by glucometer (mass/volume) - 10/13/17 19: 12 Capillary blood glucose measurement by glucometer (mass/volume) 203 mg/dL 70-110 Capillary blood glucose measurement by glucometer (mass/volume) - 10/13/17 21: 40 Capillary blood glucose measurement by glucometer (mass/volume) 150 mg/dL 70-110 Capillary blood glucose measurement by glucometer (mass/volume) - 10/14/17 01: 04 Capillary blood glucose measurement by glucometer (mass/volume) 115 mg/dL 70-110 Automated blood complete blood count (hemogram) panel - 10/14/17 04:55 Blood leukocytes automated count (number/volume) 5.7 10*3/uL 4.3-11.0 Blood erythrocytes automated count (number/volume) 3.15 10*6/uL 4.35-5.85 Venous blood hemoglobin measurement (mass/volume) 10.0 g/dL 13.3-17.7 Blood hematocrit (volume fraction) 31 % 40-54 Automated erythrocyte mean corpuscular volume 97 [foz_us] 80-99 Automated erythrocyte mean corpuscular hemoglobin (mass per erythrocyte) 32 pg 25-34 Automated erythrocyte mean corpuscular hemoglobin concentration measurement ( mass/volume) 33 g/dL 32-36 Automated erythrocyte distribution width ratio 12.9 % 10.0-14.5 Automated blood platelet count (count/volume) 137 10*3/uL 130-400 Automated blood platelet mean volume measurement 10.3 [foz_us] 7.4-10.4 Comprehensive metabolic panel - 10/14/17 04:55 Serum or plasma sodium measurement (moles/volume) 142 mmol/L 135-145 Serum or plasma potassium measurement (moles/volume) 3.8 mmol/L 3.6-5.0 Serum or plasma chloride measurement (moles/volume) 108 mmol/L 98-107 Carbon dioxide 24 mmol/L 21-32 Serum or plasma anion gap determination (moles/volume) 10 mmol/L 5-14 Serum or plasma urea nitrogen measurement (mass/volume) 36 mg/dL 7-18 Serum or plasma creatinine measurement (mass/volume) 2.18 mg/dL 0.60-1.30 Serum or plasma urea nitrogen/creatinine mass ratio 17 NRG Serum or plasma creatinine measurement with calculation of estimated glomerular filtration rate 29 NRG Serum or plasma glucose measurement (mass/volume) 93 mg/dL 70-105 Serum or plasma calcium measurement (mass/volume) 8.7 mg/dL 8.5-10.1 Serum or plasma total bilirubin measurement (mass/volume) 0.6 mg/dL 0.1-1.0 Serum or plasma alkaline phosphatase measurement (enzymatic activity/volume) 49 U/L 40-136 Serum or plasma aspartate aminotransferase measurement (enzymatic activity/ volume) 17 U/L 5-34 Serum or plasma alanine aminotransferase measurement (enzymatic activity/volume ) 10 U/L 0-55 Serum or plasma protein measurement (mass/volume) 5.3 g/dL 6.4-8.2 Serum or plasma albumin measurement (mass/volume) 3.2 g/dL 3.2-4.5 Lipid 1996 panel - 10/14/17 04:55 Serum or plasma triglyceride measurement (mass/volume) 124 mg/dL <150 Serum or plasma cholesterol measurement (mass/volume) 129 mg/dL < 200 Serum or plasma cholesterol in HDL measurement (mass/volume) 30 mg/ dL 40-60 Cholesterol in LDL [mass/volume] in serum or plasma by direct assay 72 mg/dL 1-129 Serum or plasma cholesterol in VLDL measurement (mass/volume) 25 mg/ dL 5-40 Capillary blood glucose measurement by glucometer (mass/volume) - 10/14/17 05: 10 Capillary blood glucose measurement by glucometer (mass/volume) 95 mg/dL 70-110 Capillary blood glucose measurement by glucometer (mass/volume) - 10/14/17 11: 25 Capillary blood glucose measurement by glucometer (mass/volume) 157 mg/dL 70-110 Capillary blood glucose measurement by glucometer (mass/volume) - 10/14/17 15: 54 Capillary blood glucose measurement by glucometer (mass/volume) 213 mg/dL 70-110 Capillary blood glucose measurement by glucometer (mass/volume) - 10/14/17 20: 27 Capillary blood glucose measurement by glucometer (mass/volume) 187 mg/dL 70-110 Capillary blood glucose measurement by glucometer (mass/volume) - 10/15/17 05: 59 Capillary blood glucose measurement by glucometer (mass/volume) 66 mg/dL 70-110 Complete blood count (CBC) with automated white blood cell (WBC) differential - 10/15/17 05:59 Blood leukocytes automated count (number/volume) 5.6 10*3/uL 4.3-11.0 Blood erythrocytes automated count (number/volume) 3.16 10*6/uL 4.35-5.85 Venous blood hemoglobin measurement (mass/volume) 10.2 g/dL 13.3-17.7 Blood hematocrit (volume fraction) 31 % 40-54 Automated erythrocyte mean corpuscular volume 97 [foz_us] 80-99 Automated erythrocyte mean corpuscular hemoglobin (mass per erythrocyte) 32 pg 25-34 Automated erythrocyte mean corpuscular hemoglobin concentration measurement ( mass/volume) 33 g/dL 32-36 Automated erythrocyte distribution width ratio 13.1 % 10.0-14.5 Automated blood platelet count (count/volume) 137 10*3/uL 130-400 Automated blood platelet mean volume measurement 10.3 [foz_us] 7.4-10.4 Automated blood neutrophils/100 leukocytes 59 % 42-75 Automated blood lymphocytes/100 leukocytes 32 % 12-44 Blood monocytes/100 leukocytes 7 % 0-12 Automated blood eosinophils/100 leukocytes 1 % 0-10 Automated blood basophils/100 leukocytes 1 % 0-10 Blood neutrophils automated count (number/volume) 3.3 10*3 1.8-7.8 Blood lymphocytes automated count (number/volume) 1.8 10*3 1.0-4.0 Blood monocytes automated count (number/volume) 0.4 10*3 0.0-1.0 Automated eosinophil count 0.1 10*3/uL 0.0-0.3 Automated blood basophil count (count/volume) 0.0 10*3/uL 0.0-0.1 Serum or plasma lithium measurement (moles/volume) - 10/15/17 05:59 BNP level 361.6 pg/mL <100.0 Comprehensive metabolic panel - 10/15/17 05:59 Serum or plasma sodium measurement (moles/volume) 142 mmol/L 135-145 Serum or plasma potassium measurement (moles/volume) 4.0 mmol/L 3.6-5.0 Serum or plasma chloride measurement (moles/volume) 109 mmol/L 98-107 Carbon dioxide 24 mmol/L 21-32 Serum or plasma anion gap determination (moles/volume) 9 mmol/L 5-14 Serum or plasma urea nitrogen measurement (mass/volume) 39 mg/dL 7-18 Serum or plasma creatinine measurement (mass/volume) 2.28 mg/dL 0.60-1.30 Serum or plasma urea nitrogen/creatinine mass ratio 17 NRG Serum or plasma creatinine measurement with calculation of estimated glomerular filtration rate 27 NRG Serum or plasma glucose measurement (mass/volume) 68 mg/dL 70-105 Serum or plasma calcium measurement (mass/volume) 9.1 mg/dL 8.5-10.1 Serum or plasma total bilirubin measurement (mass/volume) 0.8 mg/dL 0.1-1.0 Serum or plasma alkaline phosphatase measurement (enzymatic activity/volume) 49 U/L 40-136 Serum or plasma aspartate aminotransferase measurement (enzymatic activity/ volume) 30 U/L 5-34 Serum or plasma alanine aminotransferase measurement (enzymatic activity/volume ) 14 U/L 0-55 Serum or plasma protein measurement (mass/volume) 5.7 g/dL 6.4-8.2 Serum or plasma albumin measurement (mass/volume) 3.4 g/dL 3.2-4.5 Capillary blood glucose measurement by glucometer (mass/volume) - 10/15/17 11: 45 Capillary blood glucose measurement by glucometer (mass/volume) 240 mg/dL 70-110 Capillary blood glucose measurement by glucometer (mass/volume) - 10/15/17 17: 12 Capillary blood glucose measurement by glucometer (mass/volume) 83 mg/dL 70-110 Capillary blood glucose measurement by glucometer (mass/volume) - 10/15/17 20: 04 Capillary blood glucose measurement by glucometer (mass/volume) 188 mg/dL 70-110 Whole blood basic metabolic panel - 10/16/17 05:55 Serum or plasma sodium measurement (moles/volume) 145 mmol/L 135-145 Serum or plasma potassium measurement (moles/volume) 3.9 mmol/L 3.6-5.0 Serum or plasma chloride measurement (moles/volume) 110 mmol/L 98-107 Carbon dioxide 27 mmol/L 21-32 Serum or plasma anion gap determination (moles/volume) 8 mmol/L 5-14 Serum or plasma urea nitrogen measurement (mass/volume) 39 mg/dL 7-18 Serum or plasma creatinine measurement (mass/volume) 2.39 mg/dL 0.60-1.30 Serum or plasma urea nitrogen/creatinine mass ratio 16 NRG Serum or plasma creatinine measurement with calculation of estimated glomerular filtration rate 26 NRG Serum or plasma glucose measurement (mass/volume) 62 mg/dL 70-105 Serum or plasma calcium measurement (mass/volume) 8.7 mg/dL 8.5-10.1 Hemoglobin A1c - 10/16/17 05:55 Blood hemoglobin A1C measurement (mass/volume) 5.6 % 4.0- 5.6 MEAN BLOOD GLUCOSE 114 % <=126 Capillary blood glucose measurement by glucometer (mass/volume) - 10/16/17 06: 02 Capillary blood glucose measurement by glucometer (mass/volume) 82 mg/dL 70-110 Capillary blood glucose measurement by glucometer (mass/volume) - 10/16/17 11: 46 Capillary blood glucose measurement by glucometer (mass/volume) 268 mg/dL 70-110 Capillary blood glucose measurement by glucometer (mass/volume) - 10/16/17 16: 18 Capillary blood glucose measurement by glucometer (mass/volume) 61 mg/dL 70-110 Capillary blood glucose measurement by glucometer (mass/volume) - 10/16/17 17: 04 Capillary blood glucose measurement by glucometer (mass/volume) 57 mg/dL 70-110 Capillary blood glucose measurement by glucometer (mass/volume) - 10/16/17 17: 46 Capillary blood glucose measurement by glucometer (mass/volume) 78 mg/dL 70-110 Capillary blood glucose measurement by glucometer (mass/volume) - 10/16/17 20: 17 Capillary blood glucose measurement by glucometer (mass/volume) 162 mg/dL 70-110 Capillary blood glucose measurement by glucometer (mass/volume) - 10/17/17 05: 20 Capillary blood glucose measurement by glucometer (mass/volume) 125 mg/dL 70-110 Capillary blood glucose measurement by glucometer (mass/volume) - 10/17/17 11: 10 Capillary blood glucose measurement by glucometer (mass/volume) 244 mg/dL 70-110 Capillary blood glucose measurement by glucometer (mass/volume) - 10/17/17 15: 25 Capillary blood glucose measurement by glucometer (mass/volume) 197 mg/dL 70-110 Capillary blood glucose measurement by glucometer (mass/volume) - 10/17/17 20: 42 Capillary blood glucose measurement by glucometer (mass/volume) 143 mg/dL 70-110 Capillary blood glucose measurement by glucometer (mass/volume) - 10/18/17 04: 25 Capillary blood glucose measurement by glucometer (mass/volume) 117 mg/dL 70-110 Capillary blood glucose measurement by glucometer (mass/volume) - 10/18/17 10: 57 Capillary blood glucose measurement by glucometer (mass/volume) 201 mg/dL 70-110 Capillary blood glucose measurement by glucometer (mass/volume) - 10/18/17 15: 50 Capillary blood glucose measurement by glucometer (mass/volume) 173 mg/dL 70-110 Capillary blood glucose measurement by glucometer (mass/volume) - 10/18/17 20: 41 Capillary blood glucose measurement by glucometer (mass/volume) 203 mg/dL 70-110 Capillary blood glucose measurement by glucometer (mass/volume) - 10/19/17 05: 28 Capillary blood glucose measurement by glucometer (mass/volume) 88 mg/dL 70-110 Capillary blood glucose measurement by glucometer (mass/volume) - 10/19/17 10: 46 Capillary blood glucose measurement by glucometer (mass/volume) 145 mg/dL 70-110 Capillary blood glucose measurement by glucometer (mass/volume) - 10/19/17 15: 26 Capillary blood glucose measurement by glucometer (mass/volume) 224 mg/dL 70-110 Capillary blood glucose measurement by glucometer (mass/volume) - 10/19/17 21: 01 Capillary blood glucose measurement by glucometer (mass/volume) 182 mg/dL 70-110 Capillary blood glucose measurement by glucometer (mass/volume) - 10/20/17 04: 38 Capillary blood glucose measurement by glucometer (mass/volume) 65 mg/dL 70-110 Capillary blood glucose measurement by glucometer (mass/volume) - 10/20/17 11: 00 Capillary blood glucose measurement by glucometer (mass/volume) 245 mg/dL 70-110 Capillary blood glucose measurement by glucometer (mass/volume) - 10/20/17 15: 36 Capillary blood glucose measurement by glucometer (mass/volume) 198 mg/dL 70-110 Capillary blood glucose measurement by glucometer (mass/volume) - 10/20/17 20: 09 Capillary blood glucose measurement by glucometer (mass/volume) 85 mg/dL 70-110 Capillary blood glucose measurement by glucometer (mass/volume) - 10/21/17 05: 35 Capillary blood glucose measurement by glucometer (mass/volume) 76 mg/dL 70-110 Capillary blood glucose measurement by glucometer (mass/volume) - 10/21/17 11: 02 Capillary blood glucose measurement by glucometer (mass/volume) 163 mg/dL 70-110 Capillary blood glucose measurement by glucometer (mass/volume) - 10/21/17 16: 02 Capillary blood glucose measurement by glucometer (mass/volume) 222 mg/dL 70-110 Capillary blood glucose measurement by glucometer (mass/volume) - 10/21/17 20: 06 Capillary blood glucose measurement by glucometer (mass/volume) 162 mg/dL 70-110 Capillary blood glucose measurement by glucometer (mass/volume) - 10/22/17 05: 22 Capillary blood glucose measurement by glucometer (mass/volume) 138 mg/dL 70-110 Capillary blood glucose measurement by glucometer (mass/volume) - 10/22/17 11: 01 Capillary blood glucose measurement by glucometer (mass/volume) 203 mg/dL 70-110 Capillary blood glucose measurement by glucometer (mass/volume) - 10/22/17 16: 05 Capillary blood glucose measurement by glucometer (mass/volume) 157 mg/dL 70-110 Capillary blood glucose measurement by glucometer (mass/volume) - 10/22/17 20: 48 Capillary blood glucose measurement by glucometer (mass/volume) 177 mg/dL 70-110 Capillary blood glucose measurement by glucometer (mass/volume) - 10/23/17 04: 29 Capillary blood glucose measurement by glucometer (mass/volume) 116 mg/dL 70-110 Capillary blood glucose measurement by glucometer (mass/volume) - 10/23/17 10: 52 Capillary blood glucose measurement by glucometer (mass/volume) 211 mg/dL 70-110 Capillary blood glucose measurement by glucometer (mass/volume) - 10/23/17 15: 48 Capillary blood glucose measurement by glucometer (mass/volume) 150 mg/dL 70-110 Capillary blood glucose measurement by glucometer (mass/volume) - 10/23/17 20: 38 Capillary blood glucose measurement by glucometer (mass/volume) 146 mg/dL 70-110 Capillary blood glucose measurement by glucometer (mass/volume) - 10/24/17 04: 43 Capillary blood glucose measurement by glucometer (mass/volume) 164 mg/dL 70-110 Capillary blood glucose measurement by glucometer (mass/volume) - 10/24/17 10: 54 Capillary blood glucose measurement by glucometer (mass/volume) 185 mg/dL 70-110 Capillary blood glucose measurement by glucometer (mass/volume) - 10/24/17 15: 57 Capillary blood glucose measurement by glucometer (mass/volume) 141 mg/dL 70-110 Capillary blood glucose measurement by glucometer (mass/volume) - 10/24/17 21: 11 Capillary blood glucose measurement by glucometer (mass/volume) 165 mg/dL 70-110 Capillary blood glucose measurement by glucometer (mass/volume) - 10/25/17 05: 54 Capillary blood glucose measurement by glucometer (mass/volume) 118 mg/dL 70-110 Capillary blood glucose measurement by glucometer (mass/volume) - 10/25/17 11: 00 Capillary blood glucose measurement by glucometer (mass/volume) 195 mg/dL 70-110 Capillary blood glucose measurement by glucometer (mass/volume) - 10/25/17 16: 11 Capillary blood glucose measurement by glucometer (mass/volume) 90 mg/dL 70-110 Capillary blood glucose measurement by glucometer (mass/volume) - 10/25/17 20: 26 Capillary blood glucose measurement by glucometer (mass/volume) 149 mg/dL 70-110 Capillary blood glucose measurement by glucometer (mass/volume) - 10/26/17 05: 31 Capillary blood glucose measurement by glucometer (mass/volume) 88 mg/dL 70-110 Capillary blood glucose measurement by glucometer (mass/volume) - 10/26/17 10: 57 Capillary blood glucose measurement by glucometer (mass/volume) 155 mg/dL 70-110 Capillary blood glucose measurement by glucometer (mass/volume) - 10/26/17 16: 55 Capillary blood glucose measurement by glucometer (mass/volume) 210 mg/dL 70-110 Capillary blood glucose measurement by glucometer (mass/volume) - 10/26/17 20: 37 Capillary blood glucose measurement by glucometer (mass/volume) 138 mg/dL 70-110 Capillary blood glucose measurement by glucometer (mass/volume) - 10/27/17 05: 26 Capillary blood glucose measurement by glucometer (mass/volume) 61 mg/dL 70-110 Capillary blood glucose measurement by glucometer (mass/volume) - 10/27/17 10: 49 Capillary blood glucose measurement by glucometer (mass/volume) 224 mg/dL 70-110 Capillary blood glucose measurement by glucometer (mass/volume) - 10/27/17 16: 02 Capillary blood glucose measurement by glucometer (mass/volume) 185 mg/dL 70-110 Capillary blood glucose measurement by glucometer (mass/volume) - 10/27/17 20: 59 Capillary blood glucose measurement by glucometer (mass/volume) 146 mg/dL 70-110 Capillary blood glucose measurement by glucometer (mass/volume) - 10/28/17 06: 12 Capillary blood glucose measurement by glucometer (mass/volume) 78 mg/dL 70-110 Capillary blood glucose measurement by glucometer (mass/volume) - 10/28/17 11: 18 Capillary blood glucose measurement by glucometer (mass/volume) 170 mg/dL 70-110 Encounters ACCT No. Visit Date/Time Discharge Status Pt. Type Provider Facility Loc./Unit Complaint [id number] 04/16/2018 15:08:00 04/16/2018 16:09:00 DIS Outpatient KUNAL ANDERSON APRN [facility] REHAB POOR BALANCE; UNSTEADY GAIT [id number] 03/19/2018 14:25:00 03/29/2018 00:01:00 DIS Outpatient KUNAL ANDERSON APRN [facility] POOR BALANCE; UNSTEADY GAIT [id number] 03/12/2018 09:44:00 03/12/2018 23:59:59 CLS Outpatient KUNAL ANDERSON APRN [facility] RAD CHRONIC KIDNEY DISEASE STAGE III,PROTEINURIA [id number] 01/22/2018 15:40:00 01/23/2018 09:02:00 DIS Outpatient CALI OROZCO [facility] REHAB CVA [id number] 10/14/2017 10:20:00 10/28/2017 11:45:00 DIS Inpatient ADALBERTO FRANKLIN MD [facility] IRF ORAL PHASE DYSPHAGIA [id number] 10/13/2017 11:40:00 10/14/2017 10:20:00 DIS Inpatient JOHN CARSON, JOSE Peter [facility] 4TH LEFT SIDED WEAKNESS, DYSPHAGIA,VISION CHANGES [id number] 10/26/2013 13:14:00 01/24/2014 00:01:00 DIS Outpatient HENRIK VELAZQUEZ MD [facility] CKO,ANEMIA [id number] 09/28/2013 12:59:00 10/04/2013 00:01:00 DIS Outpatient HENRIK VELAZQUEZ MD [facility] CKO,ANEMIA [id number] 04/09/2013 12:53:00 06/29/2013 00:01:00 DIS Outpatient HENRIK VELAZQUEZ MD [facility] IRON DEFIECENCY ANEMIA [id number] 06/21/2013 12:54:00 06/28/2013 00:01:00 DIS Outpatient HENRIK VELAZQUEZ MD [facility] CKO,ANEMIA [id number] 03/16/2013 12:58:00 03/22/2013 00:01:00 DIS Outpatient HENRIK VELAZQUEZ MD [facility] CKO,ANEMIA [id number] 01/25/2014 00:00:00 Document Registration [email or web address] 06/08/2013 13:28:58 ACT Document Registration
[2018-07-08] MEDS ORDERED: NS IV 1000 ML 1,000 ML IV SCH (13:09)
[2018-07-08 13:25] LABS: BASOPHILS # (AUTO) 0.1 10^3/uL (0.0-0.1); BASOPHILS % (AUTO) 1 % (0-10); EOSINOPHILS # (AUTO) 0.1 10^3/uL (0.0-0.3); EOSINOPHILS % (AUTO) 1 % (0-10); HEMATOCRIT 38 % (40-54); HEMOGLOBIN 12.4 G/DL (13.3-17.7); LYMPHOCYTES # (AUTO) 1.9 X 10^3 (1.0-4.0); LYMPHOCYTES % (AUTO) 23 % (12-44); MEAN CORPUSCULAR HEMOGLOBIN 31 PG (25-34); MEAN CORPUSCULAR HGB CONC 33 G/DL (32-36); MEAN CORPUSCULAR VOLUME 95 FL (80-99); MEAN PLATELET VOLUME 10.3 FL (7.4-10.4); MONOCYTES # (AUTO) 0.4 X 10^3 (0.0-1.0); MONOCYTES % (AUTO) 5 % (0-12); NEUTROPHILS % (AUTO) 72 % (42-75); PLATELET COUNT 147 10^3/uL (130-400); RED BLOOD COUNT 3.98 10^6/uL (4.35-5.85); RED CELL DISTRIBUTION WIDTH 13.3 % (10.0-14.5); WHITE BLOOD COUNT 8.4 10^3/uL (4.3-11.0)
--- NOTE | 2018-07-08 13:35 | ED Cough/URI ---
General Stated Complaint: "SICK" History of Present Illness Date Seen by Provider: Jul 08, 2018 Time Seen by Provider: 13:15 Initial Comments 88-year-old male presents via EMS for being "sick". He is alert and oriented, his reports that he was weak and she was "unable to handle him at home this morning." He's had a productive cough for the last 2 days he denies fever. He has had none of his normal home medications. 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 Timing/Duration: just prior to arrival Severity/Quality: productive cough Prior Episodes/Possible Cause: occasional episodes Associated Symptoms: cough, fever/chills, muscle aches Allergies and Home Medications Allergies Coded Allergies: No Known Drug Allergies (Unverified , 05/15/10) Home Medications Acetaminophen 500 Mg Tablet, 500 MG PO Q4H PRN for PAIN-MILD, (Reported) Acetaminophen/Diphenhydramine 1 Each Tablet, 1 TAB PO HS, (Reported) Albuterol Sulfate 1 Puff Puff, 2 PUFF IH Q4H 1 PUFF = 90 MCG Prescribed by: PADMA SEXTON on 07/08/18 1438 Amlodipine Besylate 5 Mg Tablet, 5 MG PO DAILY, (Reported) Ascorbate Calcium 500 Mg Tablet, 500 MG PO DAILY, (Reported) Aspirin 81 Mg Tablet.dr, 81 MG PO 1200, (Reported) Atorvastatin Calcium 40 Mg Tablet, 40 MG PO DAILY, (Reported) Cholecalciferol (Vitamin D3) 2,000 Unit Capsule, 2,000 UNIT PO DAILY, (Reported) Febuxostat 80 Mg Tablet, 80 MG PO DAILY, (Reported) Fenofibrate Nanocrystallized 48 Mg Tablet, 48 MG PO DAILY, (Reported) Ferrous Sulfate 325 Mg Tablet, 325 MG PO DAILY, (Reported) Furosemide 40 Mg Tablet, 40 MG PO DAILY, (Reported) Glipizide 10 Mg Tablet, 10 MG PO TID, (Reported) Levofloxacin 250 Mg Tablet, 250 MG PO DAILY take 2 tablets today, then 1 tablet daily for next 6 days Prescribed by: PADMA SEXTON on 07/08/18 1438 Metoprolol Tartrate 50 Mg Tablet, 50 MG PO BID, (Reported) Potassium Chloride 10 Meq Capsule.er, 10 MEQ PO HS, (Reported) Ranitidine HCl 75 Mg Tablet, 75 MG PO HS, (Reported) Patient Home Medication List Home Medication List Reviewed: Yes Review of Systems Review of Systems Constitutional: see HPI, weakness Respiratory: see HPI, cough, phlegm; No short of breath Cardiovascular: no symptoms reported, see HPI; No chest pain Musculoskeletal: see HPI, muscle weakness (generalized) All Other Systems Reviewed Negative Unless Noted: Yes Past Vyisdhy-Wdpcju-Vwprlk Hx Past Med/Social Hx: Reviewed Nursing Past Med/Soc Hx Patient Social History Type Used: Cigarettes Former Smoker, Quit: Oct 15, 1987 Recent Hopitalizations: No Immunizations Up To Date Tetanus Booster (TDap): Unknown Date of Pneumonia Vaccine: May 15, 2017 Seasonal Allergies Seasonal Allergies: No Past Medical History Surgeries: Yes (ulcer surgery 1959's, MAXOID) Abdominal Respiratory: No Cardiac: Yes Heart Attack, Hypertension Neurological: Yes Reproductive Disorders: No Genitourinary: No Gastrointestinal: No Musculoskeletal: No Endocrine: Yes Diabetes, Insulin dep HEENT: No Loss of Vision: Denies Hearing Impairment: Denies Cancer: No Psychosocial: No Integumentary: No Blood Disorders: No Family Medical History Patient reports no known family medical history. No Pertinent Family Hx Physical Exam Vital Signs - First Documented 07/08/18 13:05 Temp 98.6 Pulse 88 Resp 32 B/P (MAP) 183/115 (137) Pulse Ox 98 O2 Delivery Nasal Cannula O2 Flow Rate 2.00 Capillary Refill : Height: 6'0.00" Weight: 237lbs. 9.6oz. 107.384514ff; 33.8 BMI Method:Stated General Appearance: WD/WN, no apparent distress HEENT: PERRL/EOMI, normal ENT inspection, TMs normal, pharynx normal Neck: non-tender, full range of motion, supple, normal inspection; No lymphadenopathy (R), No lymphadenopathy (L) Respiratory: chest non-tender, no respiratory distress, decreased breath sounds Cardiovascular: normal peripheral pulses, regular rate, rhythm, no edema Gastrointestinal: normal bowel sounds, non tender, soft Neurologic/Psychiatric: no motor/sensory deficits, alert, normal mood/affect Skin: normal color, warm/dry Focused Exam Lactate Level 07/08/18 13:19: Lactic Acid Level 1.49 Lactic Acid Level Laboratory Tests Test 07/08/18 13:19 Lactic Acid Level 1.49 MMOL/L (0.50-2.00) Progress/Results/Core Measures Suspected Sepsis SIRS Temperature: Pulse: Respiratory Rate: Laboratory Tests 07/08/18 13:19: White Blood Count 8.4 Blood Pressure / Mean: 07/08/18 13:19: Lactic Acid Level 1.49 Laboratory Tests 07/08/18 13:19: Creatinine 2.24H, INR Comment 1.0, Platelet Count 147, Total Bilirubin 0.7 Results/Orders Lab Results Laboratory Tests Test 07/08/18 13:19 Range/Units White Blood Count 8.4 4.3-11.0 10^3/uL Red Blood Count 3.98 L 4.35-5.85 10^6/uL Hemoglobin 12.4 L 13.3-17.7 G/DL Hematocrit 38 L 40-54 % Mean Corpuscular Volume 95 80-99 FL Mean Corpuscular Hemoglobin 31 25-34 PG Mean Corpuscular Hemoglobin Concent 33 32-36 G/DL Red Cell Distribution Width 13.3 10.0-14.5 % Platelet Count 147 130-400 10^3/uL Mean Platelet Volume 10.3 7.4-10.4 FL Neutrophils (%) (Auto) 72 42-75 % Lymphocytes (%) (Auto) 23 12-44 % Monocytes (%) (Auto) 5 0-12 % Eosinophils (%) (Auto) 1 0-10 % Basophils (%) (Auto) 1 0-10 % Neutrophils # (Auto) 6.0 1.8-7.8 X 10^3 Lymphocytes # (Auto) 1.9 1.0-4.0 X 10^3 Monocytes # (Auto) 0.4 0.0-1.0 X 10^3 Eosinophils # (Auto) 0.1 0.0-0.3 10^3/uL Basophils # (Auto) 0.1 0.0-0.1 10^3/uL Prothrombin Time 13.6 12.2-14.7 SEC INR Comment 1.0 0.8-1.4 Activated Partial Thromboplast Time 27 24-35 SEC Sodium Level 140 135-145 MMOL/L Potassium Level 4.3 3.6-5.0 MMOL/L Chloride Level 107 98-107 MMOL/L Carbon Dioxide Level 23 21-32 MMOL/L Anion Gap 10 5-14 MMOL/L Blood Urea Nitrogen 36 H 7-18 MG/DL Creatinine 2.24 H 0.60-1.30 MG/DL Estimat Glomerular Filtration Rate 28 BUN/Creatinine Ratio 16 Glucose Level 159 H 70-105 MG/DL Lactic Acid Level 1.49 0.50-2.00 MMOL/L Calcium Level 9.1 8.5-10.1 MG/DL Corrected Calcium 9.6 8.5-10.1 MG/DL Total Bilirubin 0.7 0.1-1.0 MG/DL Aspartate Amino Transf (AST/SGOT) 16 5-34 U/L Alanine Aminotransferase (ALT/SGPT) 8 0-55 U/L Alkaline Phosphatase 53 40-136 U/L Troponin I 0.051 <0.028 NG/ML Total Protein 5.9 L 6.4-8.2 GM/DL Albumin 3.4 3.2-4.5 GM/DL Micro Results Microbiology 07/08/18 Influenza Types A,B Antigen (LUPE) - Final, Complete My Orders Orders - PADMA SEXTON Cbc With Automated Diff (07/08/18 13:09) Comprehensive Metabolic Panel (07/08/18 13:09) Blood Culture (07/08/18 13:09) Protime With Inr (07/08/18 13:09) Partial Thromboplastin Time (07/08/18 13:09) Chest 1 View, Ap/Pa Only (07/08/18 13:09) Saline Lock/Iv-Start (07/08/18 13:09) O2 (07/08/18 13:09) Influenza A And B Antigens (07/08/18 13:09) Ns Iv 1000 Ml (Sodium Chloride 0.9%) (07/08/18 13:09) Lactic Acid Analyzer (07/08/18 13:09) Ekg Tracing (07/08/18 13:09) Troponin I (07/08/18 13:13) Vital Signs/I&O 07/08/18 07/08/18 07/08/18 13:05 13:05 15:00 Temp 98.6 Pulse 88 80 Resp 32 27 B/P (MAP) 183/115 (137) 152/85 (107) Pulse Ox 98 95 O2 Delivery Nasal Cannula Nasal Cannula Room Air O2 Flow Rate 2.00 2.00 Capillary Refill : Progress Note : Time: 13:15 Progress Note Patient seen and evaluated, will obtain labs, EKG and chest x-ray. Normal saline 1 L IV. Oxygen 2 L per nasal cannula 1400 labs essentially normal. Chest x-ray shows possible infiltrates right greater than left. 1420 SaO2 on room air 93-95%. Patient able to stand with no assistance. Patient alert and oriented. Discharge instructions discussed with the patient and his . All questions answered. ECG Initial ECG Impression Date: Jul 08, 2018 Initial ECG Impression Time: 13:08 Initial ECG Rate: 93 Initial ECG Rhythm: Normal Sinus (with ventricular premature complexes.) Initial ECG Intervals: Normal Initial ECG Intervals OH 184, QRSD 100, QT 376, QTc 468. [place] P 81 QRS 96, T -24. Initial ECG Impression: Normal Initial ECG Comparisson: Unchanged Comment Reviewed with Dr. Odonnell, agrees with interpretation. Diagnostic Imaging Diagonstic Imaging: Xray Plain Films/CT/US/NM/MRI: chest Comments NAME: CLAUDIO NOLASCO [facility] REC#: [id number] PT STATUS: REG ER : 1929 PHYSICIAN: PADMA SEXTON ADMIT DATE: 07/08/18/ER Draft Date of Exam:07/08/18 CHEST 1 VIEW, AP/PA ONLY INDICATION: Weakness, confusion, slurred speech. COMPARISON: 10/15/2017 FINDINGS: A right pleural effusion has developed. There are bilateral infiltrates or edema greater right than left. The heart size is mildly enlarged. There is some prominence of the venous structures. IMPRESSION: Asymmetric pulmonary opacities, greater right, may reflect asymmetric edema or pneumonia. There is a new right pleural effusion. Increased heart size and vascular distention. Dictated on workstation # [id number] Dict: 07/08/18 1356 Trans: 07/08/18 1410 [facility] [id number] Interpreted by: SADIQ COVARRUBIAS Electronically signed by: Reviewed: Reviewed by Nv Departure Impression Primary Impression: Right lower lobe pneumonia Qualified Codes: J18.1 - Lobar pneumonia, unspecified organism Additional Impressions: CKD (chronic kidney disease) Qualified Codes: N18.3 - Chronic kidney disease, stage 3 (moderate) Cough Disposition: 01 HOME, SELF-CARE Condition: Improved Departure-Patient Inst. Decision time for Depature: 14:15 Referrals: KUNAL ANDERSON APRN (PCP) Primary Care Physician Patient Instructions: Cough, Adult (DC), Pneumonia, Adult (DC) Add. Discharge Instructions: Take antibiotic as prescribed. Use inhaler every 4 hours as needed for cough and difficulty breathing. Follow-up with your primary care provider in 2-3 days, sooner if symptoms are not improving or worsen. You may use Tylenol 650 mg alternating with ibuprofen 600 mg every 4 hours for pain or fever. You may take ffcj-enz-frckpbj Mucinex one tablet twice daily with full glass of water. Return to emergency department for worsening of symptoms, temperature greater than 101 with out relief after Tylenol and ibuprofen, difficulty breathing, or new problems. Scripts Albuterol Sulfate (VENTOLIN HFA) 1 Puff Puff 2 PUFF IH Q4H, #1 INHALER 0 Refills 1 PUFF = 90 MCG Prov: PADMA SEXTON 07/08/18 Levofloxacin (Levofloxacin) 250 Mg Tablet 250 MG PO DAILY, #8 TAB 0 Refills take 2 tablets today, then 1 tablet daily for next 6 days Prov: PADMA SEXTON 07/08/18 Copy Copies To 1: ASHLEY SEXTON MD, AMY ARNP Jul 08, 2018 13:35
[2018-07-08 13:39] LABS: PROTHROMBIN TIME PATIENT 13.6 SEC (12.2-14.7)
[2018-07-08 13:47] LABS: ALBUMIN 3.4 GM/DL (3.2-4.5); BILIRUBIN,TOTAL 0.7 MG/DL (0.1-1.0); CALCIUM 9.1 MG/DL (8.5-10.1); CREATININE SERUM 2.24 MG/DL (0.60-1.30); POTASSIUM 4.3 MMOL/L (3.6-5.0); TOTAL PROTEIN 5.9 GM/DL (6.4-8.2)
--- NOTE | 2018-07-08 14:11 | Diagnostic Imaging Report ---
INDICATION: Weakness, confusion, slurred speech. COMPARISON: 10/15/2017 FINDINGS: A right pleural effusion has developed. There are bilateral infiltrates or edema greater right than left. The heart size is mildly enlarged. There is some prominence of the venous structures. IMPRESSION: Asymmetric pulmonary opacities, greater right, may reflect asymmetric edema or pneumonia. There is a new right pleural effusion. Increased heart size and vascular distention. Dictated by: Dictated on workstation # [id number]
[2018-07-08] MEDS ORDERED: LEVO250T46 PO (14:38)
[2018-07-08] MEDS ORDERED: RT-ALBUINH IH (14:38)
[2018-07-08 15:00] VITALS: BP 152/85
== END 2018-07-08 15:00 | disposition home or self-care (01) ==
LOC: EDUNIT# 12:56 → ER 12:58
DX: J18.1 Lobar pneumonia, unspecified organism (principal); E11.22 Type 2 diabetes mellitus with diabetic chronic kidney disease; I12.9 Hypertensive chronic kidney disease with stage 1 through stage 4 chronic kidney disease, or unspecified chronic kidney disease; N18.9 Chronic kidney disease, unspecified; I25.2 Old myocardial infarction; Z98.890 Other specified postprocedural states; Z79.51 Long term (current) use of inhaled steroids; Z79.82 Long term (current) use of aspirin; Z79.4 Long term (current) use of insulin; Z87.891 Personal history of nicotine dependence
CPT/HCPCS: 36415; 71045; 80053; 83605; 84484; 85025; 85610; 85730; 87040; 87804; 93005; 96360

== ENCOUNTER 2018-07-11 21:06 | Observation (INO) | payer MEDICARE ==
[~2018-07-11] VITALS: Ht 172.7 cm; Wt 114.4 kg
[~2018-07-11 21:06] MED LIST changes: +LEVO250T46 PO; +RT-ALBUINH IH
--- NOTE | 2018-07-11 21:19 | ED General ---
General Chief Complaint: Glucose Problems Stated Complaint: WEAK Source of Information: Patient, EMS, Spouse Exam Limitations: No Limitations History of Present Illness Date Seen by Provider: Jul 11, 2018 Time Seen by Provider: 21:00 Initial Comments The patient presents to ER by EMS with chief complaint that his found him slumped down in his chair not speaking or moving. She called EMS when they got there blood sugar was 50s so they gave him an amp of D50 and he perked right up the repeat blood sugar was 140. Recently he was discharged from the hospital for pneumonia and put out on Levaquin which she's been taking routinely. He did was incontinent of his urine. He does not have a history of seizures or stroke. He is not having any weakness. He denies any pain at this time. He denies having a Villalobos catheter and while he was in the hospital. Allergies and Home Medications Allergies Coded Allergies: No Known Drug Allergies (Unverified , 05/15/10) Home Medications Acetaminophen 500 Mg Tablet, 500 MG PO Q4H PRN for PAIN-MILD, (Reported) Acetaminophen/Diphenhydramine 1 Each Tablet, 1 TAB PO HS, (Reported) Albuterol Sulfate 1 Puff Puff, 2 PUFF IH Q4H 1 PUFF = 90 MCG Prescribed by: PADMA SEXTON on 07/08/18 1438 Amlodipine Besylate 5 Mg Tablet, 5 MG PO DAILY, (Reported) Ascorbate Calcium 500 Mg Tablet, 500 MG PO DAILY, (Reported) Aspirin 81 Mg Tablet.dr, 81 MG PO 1200, (Reported) Atorvastatin Calcium 40 Mg Tablet, 40 MG PO DAILY, (Reported) Cholecalciferol (Vitamin D3) 2,000 Unit Capsule, 2,000 UNIT PO DAILY, (Reported) Febuxostat 80 Mg Tablet, 80 MG PO DAILY, (Reported) Fenofibrate Nanocrystallized 48 Mg Tablet, 48 MG PO DAILY, (Reported) Ferrous Sulfate 325 Mg Tablet, 325 MG PO DAILY, (Reported) Furosemide 40 Mg Tablet, 40 MG PO DAILY, (Reported) Glipizide 10 Mg Tablet, 10 MG PO TID, (Reported) Levofloxacin 250 Mg Tablet, 250 MG PO DAILY take 2 tablets today, then 1 tablet daily for next 6 days Prescribed by: PADMA SEXTON on 07/08/18 1438 Metoprolol Tartrate 50 Mg Tablet, 50 MG PO BID, (Reported) Potassium Chloride 10 Meq Capsule.er, 10 MEQ PO HS, (Reported) Ranitidine HCl 75 Mg Tablet, 75 MG PO HS, (Reported) Patient Home Medication List Home Medication List Reviewed: Yes Review of Systems Review of Systems Constitutional: No chills, No malaise, No weakness EENTM: No ear discharge, No ear pain Respiratory: No cough, No dyspnea on exertion, No short of breath Cardiovascular: No chest pain, No edema Gastrointestinal: No abdominal pain, No constipation, No diarrhea, No nausea Genitourinary: No discharge; dysuria Musculoskeletal: No back pain, No joint pain Past Glmdaqd-Cjrpnf-Jstdjp Hx Patient Social History Alcohol Use: Denies Use Recreational Drug Use: No Type Used: Cigarettes Former Smoker, Quit: Oct 15, 1987 Recent Foreign Travel: No Contact w/Someone Who Travel: No Recent Hopitalizations: No Immunizations Up To Date Tetanus Booster (TDap): Unknown Date of Pneumonia Vaccine: May 15, 2017 Seasonal Allergies Seasonal Allergies: No Past Medical History Surgeries: Yes (ulcer surgery 1959', MAXOID) Abdominal Respiratory: No Cardiac: Yes Heart Attack, Hypertension Neurological: Yes Reproductive Disorders: No Genitourinary: No Gastrointestinal: No Musculoskeletal: No Endocrine: Yes Diabetes, Insulin dep HEENT: No Loss of Vision: Denies Hearing Impairment: Denies Cancer: No Psychosocial: No Integumentary: No Blood Disorders: No Family Medical History Patient reports no known family medical history. No Pertinent Family Hx Physical Exam Vital Signs Vital Signs - First Documented 07/11/18 21:10 Temp 98.6 Pulse 72 Resp 14 B/P (MAP) 148/108 (121) Pulse Ox 98 O2 Delivery Room Air Capillary Refill : Height, Weight, BMI Height: 6'0" Weight: 270lbs. 9.6oz. 122.492370km; 33.8 BMI Method:Stated General Appearance: No Apparent Distress, WD/WN Eyes: Bilateral Eye Normal Inspection, Bilateral Eye PERRL, Bilateral Eye EOMI HEENT: PERRL/EOMI, TMs Normal, Normal ENT Inspection, Pharynx Normal, Moist Mucous Membranes Neck: Full Range of Motion, Normal Inspection Respiratory: Chest Non Tender, Lungs Clear, Normal Breath Sounds, No Accessory Muscle Use, No Respiratory Distress Cardiovascular: Regular Rate, Rhythm, No Edema, Normal Peripheral Pulses Gastrointestinal: Normal Bowel Sounds, Non Tender, Soft Extremity: Normal Capillary Refill, Normal Inspection Neurologic/Psychiatric: Alert, Oriented x3, No Motor/Sensory Deficits Skin: Normal Color, Warm/Dry Progress/Results/Core Measures Suspected Sepsis SIRS Temperature: Pulse: Respiratory Rate: Laboratory Tests 07/11/18 21:10: White Blood Count 8.0 Blood Pressure / Mean: Laboratory Tests 07/11/18 21:10: Creatinine 2.75#H, Platelet Count 155, Total Bilirubin 0.5 Results/Orders Lab Results Laboratory Tests Test 07/11/18 21:10 07/11/18 21:59 07/11/18 22:33 Range/Units White Blood Count 8.0 4.3-11.0 10^3/uL Red Blood Count 3.69 L 4.35-5.85 10^6/uL Hemoglobin 11.7 L 13.3-17.7 G/DL Hematocrit 35 L 40-54 % Mean Corpuscular Volume 96 80-99 FL Mean Corpuscular Hemoglobin 32 25-34 PG Mean Corpuscular Hemoglobin Concent 33 32-36 G/DL Red Cell Distribution Width 13.6 10.0-14.5 % Platelet Count 155 130-400 10^3/uL Mean Platelet Volume 10.0 7.4-10.4 FL Neutrophils (%) (Auto) 67 42-75 % Lymphocytes (%) (Auto) 24 12-44 % Monocytes (%) (Auto) 7 0-12 % Eosinophils (%) (Auto) 2 0-10 % Basophils (%) (Auto) 0 0-10 % Neutrophils # (Auto) 5.3 1.8-7.8 X 10^3 Lymphocytes # (Auto) 1.9 1.0-4.0 X 10^3 Monocytes # (Auto) 0.6 0.0-1.0 X 10^3 Eosinophils # (Auto) 0.1 0.0-0.3 10^3/uL Basophils # (Auto) 0.0 0.0-0.1 10^3/uL Sodium Level 141 135-145 MMOL/L Potassium Level 4.4 3.6-5.0 MMOL/L Chloride Level 107 98-107 MMOL/L Carbon Dioxide Level 24 21-32 MMOL/L Anion Gap 10 5-14 MMOL/L Blood Urea Nitrogen 41 H 7-18 MG/DL Creatinine 2.75 #H 0.60-1.30 MG/DL Estimat Glomerular Filtration Rate 22 BUN/Creatinine Ratio 15 Glucose Level 117 H 70-105 MG/DL Calcium Level 8.9 8.5-10.1 MG/DL Corrected Calcium 9.5 8.5-10.1 MG/DL Total Bilirubin 0.5 0.1-1.0 MG/DL Aspartate Amino Transf (AST/SGOT) 20 5-34 U/L Alanine Aminotransferase (ALT/SGPT) 10 0-55 U/L Alkaline Phosphatase 55 40-136 U/L Total Protein 5.8 L 6.4-8.2 GM/DL Albumin 3.3 3.2-4.5 GM/DL Glucometer 86 79 70-110 MG/DL My Orders Orders - HUBERT PETER Cbc With Automated Diff (07/11/18 21:17) Comprehensive Metabolic Panel (07/11/18 21:17) Ua Culture If Indicated (07/11/18 21:17) Accucheck Stat ONCE (07/11/18 21:17) D5 1/2 Ns 1000 Ml Iv Solution (Dextrose (07/11/18 22:45) General/Regular (07/11/18 Dinner) Accucheck Stat ONCE (07/11/18 22:46) Saline Lock/Iv-Start (07/11/18 22:57) Normal Saline 1l Bolus (07/11/18 22:57) Vital Signs/I&O 07/11/18 21:10 Temp 98.6 Pulse 72 Resp 14 B/P (MAP) 148/108 (121) Pulse Ox 98 O2 Delivery Room Air Capillary Refill : Progress Note : Time: 23:18 Progress Note Patient's blood sugar went up to 140 after he received the D50 from EMS but however is gone back down to the 80s so we'll put him on D5 half normal saline at 100 mL an hour because he is declining to eat at this time. He is not nauseated he just says he doesn't want to eat. He is still being treated for pneumonia. He's not been able to produce a urine yet he looks dry and his BUN is elevated he has a history of chronic kidney disease so we are going to give him a liter of fluids and try and obtain a urine upstairs. Departure Communication (Admissions) Time/Spoke to Admitting Phy: 23:00 Discussed case lab imaging findings with Dr. Domingo she agrees to observe the patient for some hypoglycemia. His pneumonia at this point seems stable but could be the source of his labile sugars. Impression Primary Impression: Hypoglycemia associated with diabetes Additional Impression: Pneumonia Qualified Codes: J18.9 - Pneumonia, unspecified organism Disposition: ADMITTED INPATIENT Condition: Stable Admissions Decision to Admit Reason: Admit from ER (General) Decision to Admit/Date: Jul 11, 2018 Time/Decision to Admit Time: 23:20 Departure-Patient Inst. Referrals: KUNAL ANDERSON APRN (PCP) Primary Care Physician Copy Copies To 1: ASHLEY SEXTON MD, TITUS J Jul 11, 2018 21:19
[2018-07-11 21:22] LABS: BASOPHILS % (AUTO) 0 % (0-10); EOSINOPHILS # (AUTO) 0.1 10^3/uL (0.0-0.3); EOSINOPHILS % (AUTO) 2 % (0-10); HEMATOCRIT 35 % (40-54); HEMOGLOBIN 11.7 G/DL (13.3-17.7); LYMPHOCYTES # (AUTO) 1.9 X 10^3 (1.0-4.0); LYMPHOCYTES % (AUTO) 24 % (12-44); MEAN CORPUSCULAR HEMOGLOBIN 32 PG (25-34); MEAN CORPUSCULAR HGB CONC 33 G/DL (32-36); MEAN CORPUSCULAR VOLUME 96 FL (80-99); MONOCYTES # (AUTO) 0.6 X 10^3 (0.0-1.0); MONOCYTES % (AUTO) 7 % (0-12); NEUTROPHILS # (AUTO) 5.3 X 10^3 (1.8-7.8); NEUTROPHILS % (AUTO) 67 % (42-75); PLATELET COUNT 155 10^3/uL (130-400); RED BLOOD COUNT 3.69 10^6/uL (4.35-5.85); RED CELL DISTRIBUTION WIDTH 13.6 % (10.0-14.5)
[2018-07-11 21:38] LABS: ALBUMIN 3.3 GM/DL (3.2-4.5); BILIRUBIN,TOTAL 0.5 MG/DL (0.1-1.0); CALCIUM 8.9 MG/DL (8.5-10.1); CREATININE SERUM 2.75 MG/DL (0.60-1.30); POTASSIUM 4.4 MMOL/L (3.6-5.0); TOTAL PROTEIN 5.8 GM/DL (6.4-8.2)
[2018-07-11] MEDS ORDERED: D5 1/2 NS 1000 ML IV SOLUTION 1,000 ML IV SCH (22:45)
[2018-07-11] MEDS ORDERED: NS IV 1000 ML 1,000 ML IV SCH (22:57)
[2018-07-12 00:05] LABS: BILIRUBIN,URINE NEGATIVE (NEGATIVE); CLARITY,URINE CLEAR; COLOR,URINE YELLOW; GLUCOSE, URINE (UA) NEGATIVE (NEGATIVE); KETONES,URINE NEGATIVE (NEGATIVE); LEUKOCYTE ESTERASE ,URINE NEGATIVE (NEGATIVE); NITRITE,URINE NEGATIVE (NEGATIVE); PH,URINE 5 (5-9); PROTEIN,URINE 4+ (NEGATIVE); UROBILINOGEN,URINE NORMAL (NORMAL)
--- NOTE | 2018-07-12 00:12 | NUR ---
CLAUDIO NOLASCO admitted to room 409-1, with an admitting diagnosis of HYPOGLYCEMIA AND PNEUMONIA, on 07/11/18 from AM via WC, accompanied by AND STAFF.CLAUDIO NOLASCO introduced to surroundings, call light, bed controls, phone, TV, temperature control, lights, meal times, smoking policy, visitor policy, side rail policy, bathrooms and showers. Patient Rights given to patient in the handbook. CLAUDIO NOLASCO verbalizes understanding that [facility] is not responsible for the loss or damage to any personal effects or valuables that are kept in the patients posession during their hospitalization.
[2018-07-12 00:16] LABS: BACTERIA,URINE NEGATIVE /HPF; RBC,URINE 0-2 /HPF; SQUAMOUS EPITHELIAL CELL,UR RARE /HPF
[2018-07-12] MEDS ORDERED: RT-ALBUTEROL/IPRATROPIUM 3 ML (DUONEB) VIAL ONE ×2 (00:19→14:02)
[2018-07-12] MEDS ORDERED: RT-ALBUTEROL/IPRATROPIUM 3 ML (DUONEB) VIAL INH PRN (01:15)
[2018-07-12] MEDS ORDERED: ONDANSETRON 4 MG/2 ML (SDV) Z0FRAN IV PRN (03:45)
[2018-07-12] MEDS ORDERED: D5 1/2 NS 1000 ML IV SOLUTION 1,000 ML IV SCH (03:45)
[2018-07-12] MEDS ORDERED: ACETAMINOPHEN 500 MG TAB (TYLENOL) PO PRN (03:45)
[2018-07-12 04:00] VITALS: BP 148/63
[2018-07-12 05:26] LABS: BASOPHILS % (AUTO) 0 % (0-10); EOSINOPHILS # (AUTO) 0.1 10^3/uL (0.0-0.3); EOSINOPHILS % (AUTO) 1 % (0-10); HEMATOCRIT 33 % (40-54); HEMOGLOBIN 10.6 G/DL (13.3-17.7); LYMPHOCYTES # (AUTO) 2.2 X 10^3 (1.0-4.0); LYMPHOCYTES % (AUTO) 32 % (12-44); MEAN CORPUSCULAR HEMOGLOBIN 31 PG (25-34); MEAN CORPUSCULAR HGB CONC 33 G/DL (32-36); MEAN CORPUSCULAR VOLUME 95 FL (80-99); MEAN PLATELET VOLUME 10.2 FL (7.4-10.4); MONOCYTES # (AUTO) 0.5 X 10^3 (0.0-1.0); MONOCYTES % (AUTO) 8 % (0-12); NEUTROPHILS % (AUTO) 59 % (42-75); PLATELET COUNT 139 10^3/uL (130-400); RED BLOOD COUNT 3.42 10^6/uL (4.35-5.85); RED CELL DISTRIBUTION WIDTH 13.4 % (10.0-14.5); WHITE BLOOD COUNT 6.8 10^3/uL (4.3-11.0)
[2018-07-12 05:40] LABS: CALCIUM 8.6 MG/DL (8.5-10.1); CREATININE SERUM 2.54 MG/DL (0.60-1.30); POTASSIUM 4.3 MMOL/L (3.6-5.0)
[2018-07-12] MEDS: inSUlin ASPART (NovoLOG) 1 UNIT/0.01 ML (CHARGE PER UNIT) SC SCH ×2 (06:02→11:22)
[2018-07-12 07:55] VITALS: BP 156/68
[2018-07-12] MEDS ORDERED: RT-ALBUTEROL/IPRATROPIUM 3 ML (DUONEB) VIAL INH SCH (08:00)
--- NOTE | 2018-07-12 08:45 | NUR ---
FOUND WITH IV PULLED OUT AND ON FLOOR. DIFFICULT STICK WITH REPORTEDLY [address] MOSELEY HERE AND NOTIFIED AND ORDER TO LEAVE IV OUT AT THIS TIME.
[2018-07-12] MEDS ORDERED: DOCU-143 PO (10:06)
[2018-07-12] MEDS ORDERED: LEVEMIR (10:46)
[2018-07-12] MEDS ORDERED: LEVOFLOXACIN 500 MG TAB (LEVAQUIN) PO SCH (11:00)
[2018-07-12 12:24] VITALS: BP_SYST 167; BP_SYST 174; BP_DIAS 63; BP_DIAS 77
[2018-07-12] MEDS ORDERED: ASPIRIN E.C. 81 MG (ECOTRIN) TAB PO SCH (13:39)
--- NOTE | 2018-07-12 13:44 | Short Stay Summary-Hospitalist ---
History of Present Illness HPI/Chief Complaint This is an 88-year-old white male who was brought to the emergency room with decreased mental status. It was found that his blood sugars were in the 50s and these persisted despite glucose administration. Because of the oral sulfonylureas the patient was admitted overnight for IV glucose and monitoring of his blood sugars. This morning the patient is sitting up, is alert and oriented and eating his breakfast. Medications are discussed with the , at length by both the nurse and myself. The Levemir has been being given on a sliding scale basis which has worked fairly well. It was recommended she stop the glipizide because of his renal insufficiency and the long-acting nature of this medication. It's also discussed the importance of taking the metoprolol on a twice a day dose. Source: patient, family Exam Limitations: no limitations Date Seen 07/12/18 Time Seen by a Provider: 11:00 Attending Physician Vashti Domingo MD PCP [facility] Aprn Referring Physician Date of Admission Jul 11, 2018 at 23:00 Home Medications & Allergies Home Medications Reviewed patient Home Medication Reconciliation performed by pharmacy medication reconciliations reliability technician and/or nursing. Patients Allergies have been reviewed. Allergies Allergies Coded Allergies No Known Drug Allergies ([id number]/16/10) Past Ofishmt-Opdknv-Xfynpe Hx Past Med/Social Hx: Reviewed Nursing Past Med/Soc Hx Patient Social History Marrital Status: Employed/Student: retired Alcohol Use: Denies Use Recreational Drug Use: No Former Smoker, Quit: Oct 15, 1987 Type Used: Cigarettes Physical Abuse Screen: No Sexual Abuse: No Recent Foreign Travel: No Contact w/other who traveled: No Recent Hopitalizations: No Recent Infectious Disease Expo: No Immunizations Up To Date Tetanus Booster (TDap): Unknown Date of Pneumonia Vaccine: Jun 30, 2016 Date of Influenza Vaccine: Mar 30, 2018 Seasonal Allergies Seasonal Allergies: No Past Medical History Surgeries: Abdominal Cardiac: Heart Attack, Hypertension Neurological: Stroke Reproductive: No Endocrine: Diabetes, Insulin dep Loss of Vision: Denies Hearing Impairment: Denies History of Blood Disorders: No Family History Patient reports no known family medical history. No Pertinent Family Hx Review of Systems Constitutional: see HPI, weakness EENTM: vision loss Respiratory: short of breath Cardiovascular: no symptoms reported Gastrointestinal: no symptoms reported Genitourinary: no symptoms reported Musculoskeletal: muscle weakness Psychiatric/Neurological: No Symptoms Reported Physical Exam Physical Exam Vital Signs Vital Signs - First Documented 07/11/18 07/12/18 21:10 00:25 Temp 98.6 Pulse 72 Resp 14 B/P (MAP) 148/108 (121) Pulse Ox 98 O2 Delivery Room Air FiO2 21 Capillary Refill : Less Than 3 SecondsLess Than 3 Seconds Height, Weight, BMI Height: 5'8.00" Weight: 252lbs. 2.0oz. 114.633578qm; 38.3 BMI Method:Stated General Appearance: Chronically ill Neck: Limited Range of Motion Respiratory: Lungs Clear, Normal Breath Sounds, No Accessory Muscle Use, No Respiratory Distress Cardiovascular: Regular Rate, Rhythm, No Gallop Gastrointestinal: Normal Bowel Sounds, Soft Rectal: Deferred Back: Normal Inspection Extremity: No Pedal Edema Neurologic/Psychiatric: Alert, Oriented x3, Normal Mood/Affect Results Results/Procedures Labs Laboratory Tests 07/11/18 21:10 07/12/18 05:10 Patient resulted labs reviewed. 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
[2018-07-12] MEDS ORDERED: RT-ALBUTEROL SULF 2.5 MG/3 ML PRE-MIX VIAL IH PRN (13:45)
--- NOTE | 2018-07-12 13:47 | NUR ---
INSTRUCTIONS GIVEN AND VERBALIZED UNDERSTANDING. GETTING DRESSED FOR DISCHARGE.
--- NOTE | 2018-07-12 13:55 | NUR ---
DC'D PER WC WITH .
--- NOTE | 2018-07-12 19:50 | Diagnostic Imaging Report ---
INDICATION: Pneumonia. EXAMINATION: PA and lateral chest at 9:21 p.m. FINDINGS: The appearance of the chest has worsened since the prior exam of 07/08/2018 as there does seem to be somewhat greater involvement of the right lung base by pneumonia/atelectasis and fluid. The left lung base remain generally clear. Also, in the interval since the prior study, a nodular density has developed in the right suprahilar region. This may well be secondary to superimposition of the pulmonary vessels. The possibility that there is an underlying neoplastic mass in this area should still be considered, however. The lung apices are clear. The heart is stable in size. The mediastinum is not widened. The osseous structures are intact. IMPRESSION: 1. The appearance of the chest has worsened since the prior study as there is greater involvement of the right lung base by pneumonia/atelectasis and fluid. A followup exam would be recommended for continued evaluation. 2. The nodular density in the right suprahilar region may be secondary to superimposition alone. The possibility that there is an underlying mass in this area should still be considered. This finding could also further evaluated on the followup exam. Dictated by: Dictated on workstation # [id number]
[2018-07-12] MEDS ORDERED: RANITIDINE HCL 75 MG PO SCH (21:00)
[2018-07-12] MEDS ORDERED: DOCUSATE SODIUM 100 MG (COLACE) CAP PO SCH (21:00)
[2018-07-12] MEDS ORDERED: meTOprolol TARTRATE 50 MG (LOPRESSOR) TAB PO SCH (21:00)
[2018-07-12] MEDS ORDERED: ATORVASTATIN 40 MG (LIPITOR) TABLET PO SCH (21:00)
[2018-07-12] MEDS ORDERED: NON-FORMULARY MEDICATION 1 EA EA (Potassium Chloride 10 MEQ) PO SCH (21:00)
[2018-07-12] MEDS ORDERED: NON-FORMULARY MEDICATION 1 EA EA (Fenofibrate Nanocrystallized (Fenofibrate) 48 MG) PO SCH (21:00)
[2018-07-13] MEDS ORDERED: ACETAMINOPHEN 500 MG TAB (TYLENOL) PO SCH (09:00)
[2018-07-13] MEDS ORDERED: FUROSEMIDE 40 MG (LASIX) TAB PO SCH (09:00)
[2018-07-13] MEDS ORDERED: FEBUXOSTAT 80 MG PO SCH (09:00)
[2018-07-13] MEDS ORDERED: FERROUS SULF 325 MG (IRON) TAB PO SCH (09:00)
[2018-07-13] MEDS ORDERED: NON-FORMULARY MEDICATION 1 EA EA (Amlodipine Besylate 5 MG) PO SCH (09:00)
== END 2018-07-12 13:34 | disposition home or self-care (01) ==
LOC: EDUNIT# 21:06 → ER 21:07 → 4TH 23:00
PROVIDERS: ADMIT Internal Medicine; ATTEND Internal Medicine
DX: E11.649 Type 2 diabetes mellitus with hypoglycemia without coma (principal); J18.9 Pneumonia, unspecified organism; I10 Essential (primary) hypertension; I25.2 Old myocardial infarction; Z86.73 Personal history of transient ischemic attack (TIA), and cerebral infarction without residual deficits; Z87.891 Personal history of nicotine dependence; Z79.4 Long term (current) use of insulin; T38.3X5A Adverse effect of insulin and oral hypoglycemic [antidiabetic] drugs, initial encounter
CPT/HCPCS: 36415; 71046; 80048; 80053; 81000; 82962; 85025; 94640

== ENCOUNTER → 2018-07-15 | Outpatient (CLI) | payer MEDICARE ==
[~2018-07-15] MED LIST changes: +DOCU-143 PO; +LEVEMIR
[2018-07-15 10:01] LABS: BASOPHILS # (AUTO) 0.1 10^3/uL (0.0-0.1); BASOPHILS % (AUTO) 1 % (0-10); EOSINOPHILS # (AUTO) 0.1 10^3/uL (0.0-0.3); EOSINOPHILS % (AUTO) 2 % (0-10); HEMATOCRIT 36 % (40-54); HEMOGLOBIN 11.9 G/DL (13.3-17.7); LYMPHOCYTES # (AUTO) 1.9 X 10^3 (1.0-4.0); LYMPHOCYTES % (AUTO) 23 % (12-44); MEAN CORPUSCULAR HGB CONC 33 G/DL (32-36); MEAN CORPUSCULAR VOLUME 96 FL (80-99); MEAN PLATELET VOLUME 10.4 FL (7.4-10.4); MONOCYTES # (AUTO) 0.5 X 10^3 (0.0-1.0); MONOCYTES % (AUTO) 6 % (0-12); NEUTROPHILS # (AUTO) 5.8 X 10^3 (1.8-7.8); NEUTROPHILS % (AUTO) 69 % (42-75); PLATELET COUNT 170 10^3/uL (130-400); RED BLOOD COUNT 3.78 10^6/uL (4.35-5.85); RED CELL DISTRIBUTION WIDTH 13.7 % (10.0-14.5); WHITE BLOOD COUNT 8.4 10^3/uL (4.3-11.0)
[2018-07-15 10:05] LABS: MEAN CORPUSCULAR HEMOGLOBIN 31 PG (25-34)
[2018-07-15 10:18] LABS: CREATININE SERUM 2.49 MG/DL (0.60-1.30); POTASSIUM 4.7 MMOL/L (3.6-5.0)
--- NOTE | 2018-07-15 11:16 | Diagnostic Imaging Report ---
INDICATION: Cough, shortness of breath. COMPARISON: 07/12/2018. FINDINGS: Frontal and lateral views of the chest demonstrates persistent, but decreasing atelectasis, effusion and infiltrate in the right base. Questionable nodule in the right hilum is likely normal superimposed bronchial anatomy. The left lung is clear. There is no pneumothorax. Osseous structures are normal. IMPRESSION: Improved aeration right lung base. Dictated by: Dictated on workstation # [id number]
== END ==
LOC: RAD 09:44
PROVIDERS: ATTEND Nurse Practitioner
DX: J18.9 Pneumonia, unspecified organism (principal); I13.0 Hypertensive heart and chronic kidney disease with heart failure and stage 1 through stage 4 chronic kidney disease, or unspecified chronic kidney disease; N18.4 Chronic kidney disease, stage 4 (severe); I50.9 Heart failure, unspecified
CPT/HCPCS: 36415; 71046; 80048; 85025

== ENCOUNTER → 2018-07-20 | Outpatient (CLI) | payer MEDICARE ==
[~2018-07-20] MED LIST changes: -AMLO5TAB7 PO; +AMLO5TAB9 PO
[2018-07-20 10:15] LABS: CREATININE SERUM 2.46 MG/DL (0.60-1.30); POTASSIUM 4.3 MMOL/L (3.6-5.0)
--- NOTE | 2018-07-20 11:05 | Diagnostic Imaging Report ---
INDICATION: Pneumonia. PA and lateral views of the chest are obtained with comparison made study of 07/15/2018. FINDINGS: There is persistent right basilar infiltrate with associated right pleural fluid and/or thickening. Left lung remains clear. Overall heart size and pulmonary vascularity are within normal limits and there is no pneumothorax. IMPRESSION: Stable chest with right basilar infiltrate and associated right pleural thickening. Dictated by: Dictated on workstation # [id number]
== END ==
LOC: LAB 09:31
PROVIDERS: ATTEND Physician Assistant
DX: J18.9 Pneumonia, unspecified organism (principal); N18.9 Chronic kidney disease, unspecified; R60.9 Edema, unspecified
CPT/HCPCS: 36415; 71046; 80048

== ENCOUNTER → 2018-12-02 | Outpatient (CLI) | payer MEDICARE ==
--- NOTE | 2018-12-02 11:16 | Diagnostic Imaging Report ---
INDICATION: Shortness of air and cough. COMPARISON: 07/20/2018 FINDINGS: Frontal and lateral radiographic views of the chest were obtained. Cardiac silhouette and pulmonary vasculature are within normal limits. There is extensive calcified aortic atherosclerosis. Large hiatal hernia is noted. Evaluation of lung [place] demonstrates patchy alveolar opacities within the left mid and lower lung field concerning for pneumonia. No large effusion or pneumothorax is seen on either side. On one of the frontal views, there is suggestion of a 2 cm nodule in the lower right lung field. There is, however associated Bromide shaped metallic density. These findings are not present on the second frontal view and may be on the basis of superimposed external button. Osseous structures show no acute abnormalities. IMPRESSION: 1. Patchy alveolar opacities within the left mid and lower lung field concerning for pneumonia. Followup is advised. 2. Probable button projecting over the right lower lung field as described above. 3. Large hiatal hernia. Dictated by: Dictated on workstation # [id number]
== END ==
LOC: RAD 09:34
PROVIDERS: ATTEND Nurse Practitioner
DX: K44.9 Diaphragmatic hernia without obstruction or gangrene (principal); I70.0 Atherosclerosis of aorta; R91.8 Other nonspecific abnormal finding of lung field; R06.02 Shortness of breath
CPT/HCPCS: 71046

== ENCOUNTER → 2018-12-07 | Outpatient (CLI) | payer MEDICARE ==
--- NOTE | 2018-12-07 10:24 | Diagnostic Imaging Report ---
INDICATION: Lower respiratory infection. EXAMINATION: PA and lateral chest. FINDINGS: There is some air trapping in the lungs. There are no infiltrates, effusions, or pneumothoraces. The heart size and pulmonary vascularity are normal. IMPRESSION: No acute abnormalities in the chest. Dictated by: Dictated on workstation # [id number]
== END ==
LOC: RAD 09:54
PROVIDERS: ATTEND Nurse Practitioner
DX: J18.9 Pneumonia, unspecified organism (principal); J22 Unspecified acute lower respiratory infection
CPT/HCPCS: 71046

== ENCOUNTER → 2018-12-28 | Outpatient (CLI) | payer MEDICARE ==
--- NOTE | 2018-12-28 11:39 | Diagnostic Imaging Report ---
INDICATION: Pneumonia. COMPARISON: Comparison made with prior examination from 12/07/2018. PA and lateral views were obtained. FINDINGS: The heart size is normal. Lungs are clear. There is no pleural effusion, pneumothorax, or pneumonia. There is air trapping compatible with COPD. IMPRESSION: COPD; otherwise, unremarkable. Dictated by: Dictated on workstation # [id number]
== END ==
LOC: RAD 11:07
PROVIDERS: ATTEND Internal Medicine
DX: J18.9 Pneumonia, unspecified organism (principal); J44.9 Chronic obstructive pulmonary disease, unspecified
CPT/HCPCS: 71046